=== PATIENT | female | born 1950 | race Caucasian/White ===

== ENCOUNTER 2017-12-16 13:21 | Emergency (ER) | payer MEDICARE, OTHER ==
[2017-03-21 17:30] VITALS: Wt 94.8 kg
[~2017-12-16 13:21] MED LIST: ACET-1966 PO; ACET-2031 PO; ACET-2043 PO; ADV250/50 INH; ALB17R INH; ALBU2.5V36 INH; ALBU8.5H IH; ALEN70TA43 PO; ALLO-119 PO; ASCO500C9 PO; ASPI-1471 PO; ASPI-719 PO; ATOR40TA24 PO; ATOR40TA69 PO; ATR10 PO; BUM2 PO; CALC600T63 PO; CEFU250T11 PO; CEPH-13 PO; CETI-459 PO; CETI10CA8 PO; CHOL100052 PO; CLOB15CR22 TP; DULERAPT INH; ENO40I SQ; EPIN0.3P15 IM; ESOM40CA42 PO; FLUC150T40 PO; FLUT16SP19 NS; FLUT16SP20 NS; FLUT1BLS3 INH; GABA-549 PO; GLUC-198 PO; HYD2 PO; HYDR-4309 PO; IBAN150T6 PO; IPR14R INH; LEVO-315 PO; LEVO750T25 PO; LEVO75TA68 PO; LIS5 PO; LISI-362 PO; MELO-205 PO; MET500 PO; METO25TA23 PO; MOM PO; MULT-820 PO; MULT1CAP41 PO; NAPR500T75 PO; OMEG-11 PO; OMEP40CA79 PO; POTA-53 PO; POTA2.5T7 PO; PRAV10TA46 PO; PROM12.546 PO; SIM10 PO; SPIR100T30 PO; TRIA15OI20 TP; VERAPAMIL PO; VITA100T4 PO; WARF-1 PO; WARF2.5T11 PO; WARF3TAB35 PO; ZOL5 PO; [UNRECOGNIZED DRUG - CODE] PO
[2017-12-16] MEDS ORDERED: ASPIRIN 81 MG CHEW PO ONE (13:40)
--- NOTE | 2017-12-16 13:45 | ER Report ---
History and Physical Time Seen By MD: 13:30 Hx. of Stated Complaint: patient reports SUYAPA chest pain and dspnea since 0500 HPI/ROS CHIEF COMPLAINT: Chest pain, shortness of breath HISTORY OF PRESENT ILLNESS: Patient is a 67-year-old female accompanied by her son, who presents the ED with complaint of chest pain shortness of breath that started this morning. She states that she felt very chilled and short of breath when she awoke this morning. She started to develop some chest pain only in her left chest. She states that the chest pain felt like more sharp pain. She denies any pain with exertion. She denies any radiation of pain into her jaw or arms. She has not had a nausea or vomiting. Patient states that this feels similar to when she had issues with pleural effusions and congestive heart failure 2 years ago. She states that she did need to have drainage completed of her left long 2 years ago because of this. She does have a history of trauma fibrillation and is on Coumadin for anticoagulation. She states that she has had a slight cough recently as well. REVIEW OF SYSTEMS: Constitutional: No fever, no chills. Eyes: No discharge. ENT: No sore throat. Cardiovascular: See history of present illness. No palpitations. Respiratory: See history of present illness. Gastrointestinal: No abdominal pain, no vomiting. Genitourinary: No hematuria. Musculoskeletal: No back pain. Skin: No rashes. Neurological: No headache. Allergies: Coded Allergies: Penicillins (Verified Allergy, Intermediate, RASH, 12/16/17) erythromycin base (Verified Allergy, Intermediate, RASH, 12/16/17) morphine (Verified Allergy, Intermediate, N&v, 12/16/17) nickel (Verified Allergy, Intermediate, rash, hives, 12/16/17) codeine (Verified Allergy, Mild, N&V, 12/16/17) salmeterol (Verified Allergy, Mild, 12/16/17) bacitracin (Verified Allergy, Unknown, 12/16/17) latex (Verified Allergy, Unknown, 12/16/17) neomycin (Verified Allergy, Unknown, 12/16/17) polymyxin B (Verified Allergy, Unknown, 12/16/17) pramoxine (Verified Allergy, Unknown, 12/16/17) Home Meds Active Scripts Cefuroxime Axetil (CEFUROXIME) 250 Mg Tablet, 250 MG PO BID for urinary tract infection, #14 TAB Prov:SARAH CHATTERJEE MD 03/23/17 Reported Medications Acetaminophen (ACETAMINOPHEN) 325 Mg Tablet, 650 MG PO BID, TAB 03/20/17 Warfarin Sodium (WARFARIN SODIUM) 2.5 Mg Tablet, 3.75 MG PO We 03/20/17 Warfarin Sodium (WARFARIN SODIUM) 2.5 Mg Tablet, 2.5 MG PO SuMoTuThFrSa 03/20/17 Albuterol Sulfate 0.083% (ALBUTEROL SULFATE 0.083%) 2.5 Mg/3 Ml Vial.neb, 2.5 MG INH Q6H Y for WHEEZING, INH 03/20/17 Cholecalciferol (Vitamin D3) (VITAMIN D) 1,000 Unit Tablet, 1000 UNIT PO DAILY 03/20/17 Lisinopril (LISINOPRIL) 10 Mg Tablet, 5 MG PO QDAY, TAB 03/20/17 Atorvastatin Calcium (LIPITOR) 40 Mg Tablet, 1 TAB PO QHS, TAB 03/20/17 Fluticasone/Vilanterol (Breo Ellipta 200-25 Mcg INH) 1 Each Blst.w.dev, 1 INHALER INH QDAY 03/20/17 Alendronate Sodium (FOSAMAX) 70 Mg Tablet, 70 MG PO QWK, TAB 03/20/17 Gabapentin (GABAPENTIN) 300 Mg Capsule, 300 MG PO BID, CAPSULE 03/20/17 Calcium Carbonate (CALCIUM) 600 Mg Tablet, 600 MG PO BID 03/20/17 Aspirin (ASPIR 81) 81 Mg Tablet.dr, 81 MG PO QDAY, TAB 07/10/15 Cetirizine Hcl (ZYRTEC) 10 Mg Capsule, 10 MG PO QDAY, CAPSULE 06/25/15 Vitamin E Mixed (VITAMIN E) 100 Unit Tablet, 100 UNIT PO DAILY 06/25/15 Ascorbic Acid (VITAMIN C) 500 Mg Capsule.er, 500 MG PO DAILY 06/25/15 Triamcinolone Acetonide 0.1% Oint 15 Gm Tube (TRIAMCINOLONE ACETONIDE 0.1% 15 GM TUBE) 15 Gm Oint...g., 1 ANGELO TP DAILY Y for RASH, TUBE 06/25/15 Albuterol Sulfate 90 Mcg/Act (PROAIR HFA 90 MCG/ACT) 8.5 Gm Hfa.aer.ad, 2 PUFF IH QID Y for SHORTNESS OF BREATH 06/25/15 Levothyroxine Sodium (LEVOXYL) 100 Mcg Tablet, 100 MCG PO QDAY, TAB 06/25/15 Epinephrine (EPIPEN 2-UZMA) 0.3 Mg/0.3 Ml Pen.injctr, 0.3 MG IM PRN Y for allergic reaction to beesting 06/25/15 Hydrocodone Bit/Acetaminophen (NORCO 5-325 TABLET) 1 Each Tablet, 1 EACH PO Q6H Y for chest pain 06/25/15 Fluticasone Prop 50 Mcg Ns (FLONASE 50 MCG NS) 16 Gm [place].susp, 1 SPRAYS NS BID , BOT 06/01/15 [place]-3 Fatty Acids/Fish Oil (FISH OIL 1,000 MG CAPSULE) 1 Each Capsule, 1 EACH PO DAILY, CAPSULE 06/01/15 Glucosa [place] 2KCL/Chondroitin [place] (GLUCOSAMINE & CHONDROITIN CAP) 1 Each Capsule, 1 TAB PO BID, CAPSULE 06/01/15 Allopurinol (ZYLOPRIM) 300 Mg Tablet, 300 MG PO QDAY, TAB 06/01/15 Omeprazole (Omeprazole) 40 Mg Capsule.dr, 40 MG PO DAILY, 0 Refills 06/04/11 Multivitamins (Multivitamin) 1 Tab Tablet, 1 TAB PO DAILY, 0 Refills 06/04/11 Bumetanide (Bumex) 2 Mg Tab, 2 MG PO QDAY, 0 Refills 06/04/11 Zolpidem Tartrate (Ambien) 5 Mg Tab, 5 MG PO QHSprn, 0 Refills 06/04/11 Reviewed Nurses Notes: Yes Old Medical Records Reviewed: Yes Hx Smoking: Yes Smoking Status: Former Smoker Exposure to Second Hand Smoke?: No Hx Substance Use Disorder: No Hx Alcohol Use: Yes Constitutional Vital Sign - Last 24 Hours 12/16/17 12/16/17 13:32 13:39 Temp 97.7 Pulse 100 Resp 14 B/P (MAP) 135/56 Pulse Ox 95 O2 Delivery Nasal Cannula O2 Flow Rate 1.0 Physical Exam General Appearance: The patient is alert, has no immediate need for airway protection and no signs of toxicity. She appears to be in no acute distress. Eyes: Pupils equal and round no pallor or injection. ENT, Mouth: Mucous membranes are moist. Respiratory: There are no retractions, lungs are clear to auscultation. Cardiovascular: Slightly tachycardic, regular rhythm Gastrointestinal: Abdomen is soft and non tender, no masses, bowel sounds normal. Skin: Warm and dry, no rashes. Musculoskeletal: Neck is supple non tender. Extremities are nontender, nonswollen and have full range of motion. DIFFERENTIAL DIAGNOSIS: After history and physical exam differential diagnosis was considered for shortness of breath including but not limited to pulmonary infectious process, COPD, asthma, pulmonary embolus and congestive heart failure. Medical Decision Making Data Points Result Diagram: 12/16/17 1350 12/16/17 1350 Laboratory Hematology Test 12/16/17 13:50 12/16/17 14:15 12/16/17 14:44 Red Blood Count 4.21 M/uL (4.17-5.56) Mean Corpuscular Volume 95.4 fL (80.0-96.0) Mean Corpuscular Hemoglobin 32.6 pg (26.0-33.0) Mean Corpuscular Hemoglobin Concent 34.1 g/dL (32.0-36.0) Red Cell Distribution Width 16.1 % (11.5-14.5) Mean Platelet Volume 8.7 fL (7.2-11.1) Neutrophils (%) (Auto) 87.3 % (39.4-72.5) Lymphocytes (%) (Auto) 8.6 % (17.6-49.6) Monocytes (%) (Auto) 3.3 % (4.1-12.4) Eosinophils (%) (Auto) 0.0 % (0.4-6.7) Basophils (%) (Auto) 0.8 % (0.3-1.4) Nucleated RBC Relative Count (auto) 0.0 /100WBC Neutrophils # (Auto) 15.1 K/uL (2.0-7.4) Lymphocytes # (Auto) 1.5 K/uL (1.3-3.6) Monocytes # (Auto) 0.6 K/uL (0.3-1.0) Eosinophils # (Auto) 0.0 K/uL (0.0-0.5) Basophils # (Auto) 0.1 K/uL (0.0-0.1) Nucleated RBC Absolute Count (auto) 0.01 K/uL Sodium Level 135 mmol/L (137-145) Potassium Level 4.1 mmol/L (3.5-5.0) Chloride Level 101 mmol/L (98-107) Carbon Dioxide Level 21 mmol/L (22-31) Blood Urea Nitrogen 15 mg/dl (7-18) Creatinine 1.20 mg/dl (0.52-1.04) Glomerular Filtration Rate Calc 44.7 Random Glucose 123 mg/dl (75-110) Calcium Level 8.5 mg/dl (8.4-10.2) Total Bilirubin 1.2 mg/dl (0.2-1.3) Aspartate Amino Transf (AST/SGOT) 67 U/L (0-35) Alanine Aminotransferase (ALT/SGPT) 27 U/L (0-56) Alkaline Phosphatase 99 U/L (0-126) Troponin I < 0.012 ng/ml B-Type Natriuretic Peptide 39 pg/ml (0-100) Total Protein 7.3 gm/dl (6.3-8.2) Albumin 4.0 g/dl (3.5-5.0) Influenza Virus Type A (PCR) Negative (NEGATIVE) Influenza Virus Type B (PCR) Negative (NEGATIVE) Prothrombin Time 27.1 seconds (12.0-14.4) Prothromb Time International Ratio 2.42 Activated Partial Thromboplast Time 42 seconds (23-35) D-Dimer Quantitative (PE/DVT) < 0.27 ug/ml (0-0.50) Chemistry Test 12/16/17 13:50 12/16/17 14:15 12/16/17 14:44 White Blood Count 17.3 k/uL (4.5-11.0) Red Blood Count 4.21 M/uL (4.17-5.56) Hemoglobin 13.7 g/dL (12.0-16.0) Hematocrit 40.2 % (34.0-47.0) Mean Corpuscular Volume 95.4 fL (80.0-96.0) Mean Corpuscular Hemoglobin 32.6 pg (26.0-33.0) Mean Corpuscular Hemoglobin Concent 34.1 g/dL (32.0-36.0) Red Cell Distribution Width 16.1 % (11.5-14.5) Platelet Count 259 K/uL (150-450) Mean Platelet Volume 8.7 fL (7.2-11.1) Neutrophils (%) (Auto) 87.3 % (39.4-72.5) Lymphocytes (%) (Auto) 8.6 % (17.6-49.6) Monocytes (%) (Auto) 3.3 % (4.1-12.4) Eosinophils (%) (Auto) 0.0 % (0.4-6.7) Basophils (%) (Auto) 0.8 % (0.3-1.4) Nucleated RBC Relative Count (auto) 0.0 /100WBC Neutrophils # (Auto) 15.1 K/uL (2.0-7.4) Lymphocytes # (Auto) 1.5 K/uL (1.3-3.6) Monocytes # (Auto) 0.6 K/uL (0.3-1.0) Eosinophils # (Auto) 0.0 K/uL (0.0-0.5) Basophils # (Auto) 0.1 K/uL (0.0-0.1) Nucleated RBC Absolute Count (auto) 0.01 K/uL Glomerular Filtration Rate Calc 44.7 Calcium Level 8.5 mg/dl (8.4-10.2) Total Bilirubin 1.2 mg/dl (0.2-1.3) Aspartate Amino Transf (AST/SGOT) 67 U/L (0-35) Alanine Aminotransferase (ALT/SGPT) 27 U/L (0-56) Alkaline Phosphatase 99 U/L (0-126) Troponin I < 0.012 ng/ml B-Type Natriuretic Peptide 39 pg/ml (0-100) Total Protein 7.3 gm/dl (6.3-8.2) Albumin 4.0 g/dl (3.5-5.0) Influenza Virus Type A (PCR) Negative (NEGATIVE) Influenza Virus Type B (PCR) Negative (NEGATIVE) Prothrombin Time 27.1 seconds (12.0-14.4) Prothromb Time International Ratio 2.42 Activated Partial Thromboplast Time 42 seconds (23-35) D-Dimer Quantitative (PE/DVT) < 0.27 ug/ml (0-0.50) Coagulation Test 12/16/17 14:44 Prothrombin Time 27.1 seconds Prothromb Time International Ratio 2.42 Activated Partial Thromboplast Time 42 seconds D-Dimer Quantitative (PE/DVT) < 0.27 ug/ml EKG/Imaging EKG Interpretation 12 lead EKG: Rhythm: Normal sinus rhythm, rate 89 bpm [place]: normal QRS: normal ST segments: No acute ST changes identified. There is slight T-wave inversion in V1. Imaging CXR: IMPRESSION: 1. Patchy airspace consolidation in the left lower lobe worrisome for pneumonia however continued surveillance recommended to assure complete clearing and to exclude a mass lesion Report Dictated By: Talia Leos MD at 12/16/2017 2:36 PM Report E-Signed By: Talia Leos MD at 12/16/2017 2:39 PM ED Course/Re-evaluation ED Course Will obtain EKG, chest x-ray, labs. 12/16/2017 3:27:05 pm - discussed all labs, EKG, chest x-ray with patient. Patient does have some leukocytosis with left shift. She also has a small patchy infiltrate in left lower lobe that looks concerning for pneumonia. Discussed this with patient. She does have oxygen that she wears usually at home and does not up. Appears to have no significant hypoxemia here. Discussed that we will give her a dose of antibiotics here IV and then by mouth antibiotics at home. Mother follow-up with primary care provider. She does have a DuoNeb with albuterol that she uses as well. Advised to continue use of this. CURB 65 Score: 1 Patient is allergic to penicillin and erythromycin. Given these allergies we will give her Levaquin for her pneumonia. Decision to Disposition Date: Dec 16, 2017 Decision to Disposition Time: 15:30 Depart Departure Latest Vital Signs Vital Signs Date Time Temp Pulse Resp B/P (MAP) Pulse Ox O2 Delivery O2 Flow Rate FiO2 12/16/17 13:39 1.0 12/16/17 13:32 97.7 100 14 135/56 95 Nasal Cannula Impression: Primary Impression: Pneumonia Condition: Improved Disposition: HOME OR SELF-CARE Referrals: JOSE SMITH (PCP) New Scripts Levofloxacin 750 Mg Tab (LEVAQUIN 750 MG TAB) 750 Mg Tablet 750 MG PO QDAY for 4 Days, #4 TAB Prov: LEILANI BERMEO PA-C 12/16/17 Patient Instructions: Bacterial Pneumonia (ED) Additional Instructions: Stay well-hydrated. Follow-up with her primary care provider as scheduled in 3 days. Take antibiotics as prescribed. Use your albuterol nebulizer as needed. If having any worsening or concerning symptoms may return to the emergency department. Problem Qualifiers Primary Impression: Pneumonia Pneumonia type: due to unspecified organism Laterality: left Lung location : lower lobe of lung Qualified Codes: J18.1 - Lobar pneumonia, unspecified organism LEILANI BERMEO PA-C Dec 16, 2017 13:45
--- NOTE | 2017-12-16 13:57 | EKG ---
FACILITY: [facility] PATIENT NAME: LESA LOCK : [id number] MR: [id number] V: [id number] EXAM DATE: ORDERING PHYSICIAN: LEILANI BERMEO TECHNOLOGIST: NETTE Diego Reason : CHEST PAIN Blood Pressure : / mmHG Vent. Rate : 089 BPM Atrial Rate : 089 BPM P-R Int : 140 ms QRS Dur : 072 ms QT Int : 386 ms P-R-T Axes : 069 019 077 degrees QTc Int : 469 ms Sinus rhythm Possible right atrial enlargement Decreased R wave progression anteriorly Abnormal ECG When compared with ECG of 20-MAR-2017 15:04, No significant change was found Confirmed by JERICHO CHATTERJEE ([id number]) on 12/17/2017 5:43:30 AM Referred By: SUSHILA Confirmed By:JERICHO CHATTERJEE
[2017-12-16 14:09] LABS: PLATELET COUNT, AUTOMATED 259 K/uL (150-450)
--- NOTE | 2017-12-16 14:44 | RADIOLOGY IMAGING REPORT ---
FACILITY: [facility] PATIENT NAME: Karen Black : 1950 MR: [id number] V: [id number] EXAM DATE: ORDERING PHYSICIAN: LEILANI BERMEO TECHNOLOGIST: Location: [facility] Patient: Karen Black : 1950 Visit/Account:[id number] Date of Sevice: 12/16/2017 Exam type: CHEST PA AND LAT History: Shortness of breath, chest pain since this morning, cough, previous smoker Comparison: March 20, 2017. Findings: There is cardiomegaly unchanged. There is no evidence of overt pulmonary edema or pleural effusions. There is patchy airspace consolidation in the left lower lobe posteriorly. There are moderate spon dylotic changes in the thoracic spine. Postsurgical changes left shoulder IMPRESSION: 1. Patchy airspace consolidation in the left lower lobe worrisome for pneumonia however continued hendricks rveillance recommended to assure complete clearing and to exclude a mass lesion Report Dictated By: Talia Leos MD at 12/16/2017 2:36 PM Report E-Signed By: Talia Leos MD at 12/16/2017 2:39 PM WSN:[email or web address]
[2017-12-16 15:00] VITALS: BP 133/56
[2017-12-16 15:17] LABS: INR 2.42
[2017-12-16] MEDS ORDERED: LEVOFLOXACIN/D5W 750 MG/150 ML 150 ML IVPB ONE (15:20)
[2017-12-16] MEDS ORDERED: ALBUTEROL 2.5 MG/0.5ML ER ONLY NEB ONE (15:20)
[2017-12-16] MEDS ORDERED: LEVO750T44 PO (15:31)
== END 2017-12-16 17:00 | disposition home or self-care (01) ==
LOC: ER 13:22
DX: J18.1 Lobar pneumonia, unspecified organism (principal)
CPT/HCPCS: 36415; 71046; 83880; 84484; 85025; 85379; 85610; 85730; 87502; 93005; 94640; 96365; 99283; A9270; J1956; J7611; 82040; 82247; 82310; 82374; 82435; 82565; 82947; 84075; 84132; 84155; 84295; 84450; 84460; 84520

== ENCOUNTER → 2018-01-06 | Outpatient (CLI) | payer MEDICARE, OTHER ==
[2017-03-21 17:30] VITALS: BMI 38.6
[~2018-01-06] MED LIST changes: +LEVO750T44 PO
--- NOTE | 2018-01-06 10:05 | RADIOLOGY IMAGING REPORT ---
FACILITY: [facility] [place] PATIENT NAME: Karen Black : 1950 MR: [id number] V: [id number] EXAM DATE: ORDERING PHYSICIAN: JOSE SMITH TECHNOLOGIST: Location: [facility] Patient: Karen Black : 1950 Visit/Account:[id number] Date of Sevice: 01/06/2018 Chest with lateral, 2 views. HISTORY: Bacterial pneumonia, chest pain. COMPARISON: 12/16/2017. Mild cardiomegaly is unchanged. The mediastinum is unremarkable. Pulmonary vessels are normal. Infilt rate in the left lung base has resolved. The lungs are voluminous. No pleural fluid. The bones are os teopenic. Degenerative changes are present in the spine. Metal anchors are present in the left should er. IMPRESSION: Mild cardiomegaly without donnie congestive heart failure. Resolution of left basilar lung infiltrate. Otherwise no evidence of acute cardiopulmonary disease. Report Dictated By: Bhupendra Chong MD at 01/06/2018 9:57 AM Report E-Signed By: Bhupendra Chong MD at 01/06/2018 10:01 AM WSN:[id number]
--- NOTE | 2018-01-06 11:41 | RADIOLOGY IMAGING REPORT ---
FACILITY: [facility] PATIENT NAME: Karen Black : 1950 MR: [id number] V: [id number] EXAM DATE: ORDERING PHYSICIAN: JOSE SMITH TECHNOLOGIST: Location: [facility] [place] Patient: Karen Black : 1950 Visit/Account:[id number] Date of Sevice: 01/06/2018 DEXA Scan Clinical history: Senile osteoporosis. Comparison: DEXA scan from 06/11/2015. LUMBAR SPINE: The bone mineral density (BMD) measured from L1-L4 correlates with a Z-score 0.4 and a T-score of zer o which is Normal as defined by the World Health Organization. The corresponding risk of fracture in the lumbar spine is Not increased compared with a young adult reference population. This value has increased by 6.8 % since the prior study. More than 5% change is considered significant. FOREARM: The bone mineral density (BMD) measured in the ULTRADISTAL Left forearm, where trabecular bone predom inates, correlates with a Z-score of -0.2 and a T-score of -1.9 which is osteopenia as defined by the World Health Organization. The corresponding risk of fracture in the distal forearm is 3-4 times in creased compared with a young adult reference population. This value has increased by 7.6 % since prior study. More than 5% change is considered significant. The bone mineral density (BMD) in the MIDSHAFT of the forearm, where cortical bone predominates, michael elates with a Z-score of -0.4 and a T-score of -2 which is osteopenia as defined by the World Health Organization. The corresponding risk of fracture in the midshaft of the forearm is 4 times increased compared with a young adult reference population. This value has increase by 7.6 % since the prior s tudy. More than 5% change is considered significant. IMPRESSION: 1. Lumbar spine: Normal. There has been 6.8% increase in the bone mineral density since the previou s exam. 2. Left Forearm: Osteopenia. There has been 7.6% increase in the bone mineral density since the pr evious exam The next DEXA scan of this patient should include the following sites: L1-L4 and the left forearm. FRAX? WHO Fracture Risk Assessment Tool link: <http://www.shef.ac.uk/FRAX/tool.jsp?locationValue=9> PLEASE NOTE: 1) The World Health Organization defines low BMD as follows: T-score Normal > -1 Osteopenia < -1 and > -2.5 Osteoporosis < -2.5 without fractures Established osteoporosis < -2.5 with fractures 2) In general, you may wish to consider: Diagnosis Treatment Follow-up DEXA Normal BMD Prevention 2-3 years Osteopenia Prevention/therapy 1-2 years Osteoporosis Therapy Yearly 3) Fracture risk estimated from the T-score is more accurate for vertebral fractures (often spontane ous) than for hip fractures. Report Dictated By: Talia Leos MD at 01/06/2018 11:10 AM Report E-Signed By: Talia Leos MD at 01/06/2018 11:38 AM WSN:[email or web address]
== END ==
LOC: RAD 03:59
PROVIDERS: ATTEND Nurse Practitioner Family
DX: Z13.820 Encounter for screening for osteoporosis (principal); M85.832 Other specified disorders of bone density and structure, left forearm; I51.7 Cardiomegaly
CPT/HCPCS: 71046; 77080

== ENCOUNTER → 2018-07-11 | Outpatient (CLI) | payer MEDICARE, OTHER ==
[2017-03-21 17:30] VITALS: BMI 38.6
--- NOTE | 2018-07-11 16:17 | RADIOLOGY IMAGING REPORT ---
FACILITY: [facility] [place] PATIENT NAME: Karen Black : 1950 MR: [id number] V: [id number] EXAM DATE: [id number] ORDERING PHYSICIAN: JOSE SMITH TECHNOLOGIST: Location: [facility] [place] Patient: Karen Black : 1950 Visit/Account:[id number] Date of Sevice: 07/11/2018 Exam type: CHEST PA AND LAT History: Shortness of breath, chest pain, hypoxemia Comparison: January 06, 2018. Findings: There is mild to moderate cardiomegaly that appears unchanged. There is no evidence of acute appeari ng infiltrates pleural effusions or pulmonary edema. There are moderate spondylotic changes of the t horacic spine some are to the prior study. There are postsurgical changes left shoulder. Small scle rotic density projecting over the proximal left humerus. This likely related to the loose body ident ified on a prior CT of the chest from 06/01/2015 IMPRESSION: 1. Mild to moderate cardiac megaly unchanged No evidence of acute pulmonary consolidation Report Dictated By: Talia Leos MD at 07/11/2018 4:04 PM Report E-Signed By: Talia Leos MD at 07/11/2018 4:12 PM GENNYN:[email or web address]
== END ==
LOC: RAD 15:39
PROVIDERS: ATTEND Nurse Practitioner Family
DX: I51.7 Cardiomegaly (principal); R06.00 Dyspnea, unspecified; R07.9 Chest pain, unspecified; R09.02 Hypoxemia
CPT/HCPCS: 71046

== ENCOUNTER 2018-07-26 15:44 | Emergency (ER) | payer MEDICARE, OTHER ==
[2017-03-21 17:30] VITALS: Wt 94.8 kg
[~2018-07-26 15:44] MED LIST changes: -HYDR-4309 PO; +HYDR-653 PO
--- NOTE | 2018-07-26 17:00 | ER Report ---
History and Physical Time Seen By MD: 15:45 Hx. of Stated Complaint: PT FELL OFF PORCH ON R SIDE, PAIN AND DEFORMITY IN R ARM, NECK TENDERNESS HPI/ROS CHIEF COMPLAINT: Fall shoulder and arm pain HISTORY OF PRESENT ILLNESS: 67-year-old female was walking out of the back door of a neighbors house lost her balance fell onto her right side has pain to her right upper arm right shoulder some mild tenderness of the elbow and some upper neck discomfort no loss of consciousness did not hit her head no hip pain was able to ambulate afterwards no additional complaints noted REVIEW OF SYSTEMS: Respiratory: No cough, no dyspnea. Cardiovascular: No chest pain, no palpitations. Gastrointestinal: No vomiting, no abdominal pain. Musculoskeletal: Right arm shoulder pain Remainder of the 14 system rev: Yes Allergies: Coded Allergies: Penicillins (Verified Allergy, Intermediate, RASH, 12/16/17) erythromycin base (Verified Allergy, Intermediate, RASH, 12/16/17) morphine (Verified Allergy, Intermediate, N&v, 12/16/17) nickel (Verified Allergy, Intermediate, rash, hives, 12/16/17) codeine (Verified Allergy, Mild, N&V, 12/16/17) salmeterol (Verified Allergy, Mild, 12/16/17) bacitracin (Verified Allergy, Unknown, 12/16/17) latex (Verified Allergy, Unknown, 12/16/17) neomycin (Verified Allergy, Unknown, 12/16/17) polymyxin B (Verified Allergy, Unknown, 12/16/17) pramoxine (Verified Allergy, Unknown, 12/16/17) Home Meds Reported Medications Hydromorphone Hcl (DILAUDID) 2 Mg Tablet, 2 MG PO 07/26/18 Acetaminophen (ACETAMINOPHEN) 325 Mg Tablet, 650 MG PO BID, TAB 03/20/17 Warfarin Sodium (WARFARIN SODIUM) 2.5 Mg Tablet, 3.75 MG PO We 03/20/17 Warfarin Sodium (WARFARIN SODIUM) 2.5 Mg Tablet, 2.5 MG PO [id number] 03/20/17 Albuterol Sulfate 0.083% (ALBUTEROL SULFATE 0.083%) 2.5 Mg/3 Ml Vial.neb, 2.5 MG INH Q6H PRN for WHEEZING, INH 03/20/17 Cholecalciferol (Vitamin D3) (VITAMIN D) 1,000 Unit Tablet, 1000 UNIT PO DAILY 03/20/17 Lisinopril (LISINOPRIL) 10 Mg Tablet, 5 MG PO QDAY, TAB 03/20/17 Atorvastatin Calcium (LIPITOR) 40 Mg Tablet, 1 TAB PO QHS, TAB 03/20/17 Fluticasone/Vilanterol (Breo Ellipta 200-25 Mcg INH) 1 Each Blst.w.dev, 1 INHALER INH QDAY 03/20/17 Alendronate Sodium (FOSAMAX) 70 Mg Tablet, 70 MG PO QWK, TAB 03/20/17 Gabapentin (GABAPENTIN) 300 Mg Capsule, 300 MG PO BID, CAPSULE 03/20/17 Calcium Carbonate (CALCIUM) 600 Mg Tablet, 600 MG PO BID 03/20/17 Aspirin (ASPIR 81) 81 Mg Tablet.dr, 81 MG PO QDAY, TAB 07/10/15 Cetirizine Hcl (ZYRTEC) 10 Mg Capsule, 10 MG PO QDAY, CAPSULE 06/25/15 Vitamin E Mixed (VITAMIN E) 100 Unit Tablet, 100 UNIT PO DAILY 06/25/15 Ascorbic Acid (VITAMIN C) 500 Mg Capsule.er, 500 MG PO DAILY 06/25/15 Triamcinolone Acetonide 0.1% Oint 15 Gm Tube (TRIAMCINOLONE ACETONIDE 0.1% 15 GM TUBE) 15 Gm Oint...g., 1 ANGELO TP DAILY PRN for RASH, TUBE 06/25/15 Albuterol Sulfate 90 Mcg/Act (PROAIR HFA 90 MCG/ACT) 8.5 Gm Hfa.aer.ad, 2 PUFF IH QID PRN for SHORTNESS OF BREATH 06/25/15 Levothyroxine Sodium (LEVOXYL) 100 Mcg Tablet, 100 MCG PO QDAY, TAB 06/25/15 Epinephrine (EPIPEN 2-UZMA) 0.3 Mg/0.3 Ml Pen.injctr, 0.3 MG IM PRN PRN for allergic reaction to beesting 06/25/15 Hydrocodone Bit/Acetaminophen (NORCO 5-325 TABLET) 1 Each Tablet, 1 EACH PO Q6H PRN for chest pain 06/25/15 Fluticasone Prop 50 Mcg Ns (FLONASE 50 MCG NS) 16 Gm Cashiers.susp, 1 SPRAYS NS BID, BOT 06/01/15 [place]-3 Fatty Acids/Fish Oil (FISH OIL 1,000 MG CAPSULE) 1 Each Capsule, 1 EACH PO DAILY, CAPSULE 06/01/15 Glucosa [place] 2KCL/Chondroitin [place] (GLUCOSAMINE & CHONDROITIN CAP) 1 Each Capsule, 1 TAB PO BID, CAPSULE 06/01/15 Allopurinol (ZYLOPRIM) 300 Mg Tablet, 300 MG PO QDAY, TAB 06/01/15 Omeprazole (Omeprazole) 40 Mg Capsule.dr, 40 MG PO DAILY, 0 Refills 06/04/11 Multivitamins (Multivitamin) 1 Tab Tablet, 1 TAB PO DAILY, 0 Refills 06/04/11 Bumetanide (Bumex) 2 Mg Tab, 2 MG PO QDAY, 0 Refills 06/04/11 Zolpidem Tartrate (Ambien) 5 Mg Tab, 5 MG PO QHSprn, 0 Refills 06/04/11 Discontinued Scripts Levofloxacin 750 Mg Tab (LEVAQUIN 750 MG TAB) 750 Mg Tablet, 750 MG PO QDAY for 4 Days, #4 TAB Prov:LEILANI BERMEO PA-C 12/16/17 Cefuroxime Axetil (CEFUROXIME) 250 Mg Tablet, 250 MG PO BID for urinary tract infection, #14 TAB Prov:SARAH CHATTERJEE MD 03/23/17 Reviewed Nurses Notes: Yes Old Medical Records Reviewed: Yes Hx Smoking: Yes Smoking Status: Former Smoker Exposure to Second Hand Smoke?: No Hx Substance Use Disorder: No Hx Alcohol Use: Yes Constitutional Vital Sign - Last 24 Hours 07/26/18 16:06 Temp 97.4 Pulse 69 Resp 18 B/P (MAP) 147/79 Pulse Ox 94 O2 Delivery Nasal Cannula Physical Exam General Appearance: The patient is alert, has no immediate need for airway protection and no current signs of toxicity. [ ] Eyes: Pupils equal and round no injection. Respiratory: Chest is non tender, lungs are clear to auscultation. Cardiac: regular rate and rhythm [ ] Gastrointestinal: Abdomen is soft and non tender, no masses, bowel sounds normal. Musculoskeletal: Examination of the right upper shoulder me shows pain to palpation the proximal humerus pain with rotation of the shoulder some mild tenderness with rotation at the elbow nonspecific Neck is supple and non tender other than some mild tenderness at C1-C2 Extremities have full range of motion and are non tender. Other than stated above Skin: No rashes or lesions. Knee abrasion [ ] DIFFERENTIAL DIAGNOSIS: After history and physical exam differential diagnosis was considered for contusion versus fracture Medical Decision Making ED Course/Re-evaluation ED Course ED: [facility] 59 Cho female mechanical fall x-rays of the cervical spine upper hum eral shoulder and lumbar review was negative patient be discharge diagnosis contusion Decision to Disposition Date: Jul 26, 2018 Decision to Disposition Time: 17:58 Depart Departure Latest Vital Signs Vital Signs Date Time Temp Pulse Resp B/P (MAP) Pulse Ox O2 Delivery O2 Flow Rate FiO2 07/26/18 16:06 97.4 69 18 147/79 94 Nasal Cannula Impression: Primary Impression: Contusion Condition: Improved Disposition: HOME OR SELF-CARE Referrals: JOSE SMITH (PCP) 5 Days Patient Instructions: Contusion in Adults (DC) NICOLE VILLAR MD Jul 26, 2018 17:00
[2018-07-26] MEDS ORDERED: HYDR2TAB74 PO (17:11)
[2018-07-26 17:30] VITALS: BP 164/65
--- NOTE | 2018-07-26 17:32 | RADIOLOGY IMAGING REPORT ---
FACILITY: [facility] [place] PATIENT NAME: Karen Blakc : 1950 MR: [id number] V: [id number] EXAM DATE: ORDERING PHYSICIAN: NICOLE IVLLAR TECHNOLOGIST: Location: [facility] - [place] Patient: Karen Black : 1950 Visit/Account:[id number] Date of Sevice: 07/26/2018 EXAMINATION: Cervical spine radiographs 3 views HISTORY: Neck pain. Fall. COMPARISON: None. FINDINGS: AP, open-mouth odontoid, and lateral views of the cervical spine are obtained. Bones: The lower cervical spine is not well visualized on the lateral views due to superimposition o f bones and soft tissues of the shoulders. Disc spaces: Disc degenerative changes at C5-6 and C6-7 with disc space narrowing and endplate osteo phytes. Posterior elements: Multilevel facet hypertrophy in the cervical spine. Alignment: Slight anterolisthesis of C4 on C5. Hardware: None. Soft tissues: Negative. Visualized lung apices: Negative. IMPRESSION: The lower cervical spine is suboptimally visualized on the lateral views due to superimposition of estelita ravi and soft tissues of the shoulders. No evidence of acute fracture of the cervical spine. Multilevel disc and facet degenerative changes in the cervical spine. Report Dictated By: Joey Salinas MD at 07/26/2018 5:24 PM Report E-Signed By: Joey Salinas MD at 07/26/2018 5:28 PM WSN:[id number]
--- NOTE | 2018-07-26 17:34 | RADIOLOGY IMAGING REPORT ---
FACILITY: [facility] - [place] PATIENT NAME: Karen Black : 1950 MR: [id number] V: [id number] EXAM DATE: ORDERING PHYSICIAN: NICOLE VILLAR TECHNOLOGIST: Location: [facility] [place] Patient: Karen Black : 1950 Visit/Account:[id number] Date of Sevice: 07/26/2018 EXAMINATION: Right shoulder radiographs 2 views HISTORY: Fall. Pain. COMPARISON: None. FINDINGS: 2 views of the right shoulder are obtained. Bones: No evidence of acute fracture. Joint spaces: No dislocation. Mild right acromioclavicular joint degenerative changes. Hardware: None. Soft tissues/visualized lungs: Negative. IMPRESSION: No evidence of acute fracture or dislocation of the right shoulder. Report Dictated By: Joey Salinas MD at 07/26/2018 5:28 PM Report E-Signed By: Joey Salinas MD at 07/26/2018 5:30 PM WSN:[id number]
--- NOTE | 2018-07-26 17:36 | RADIOLOGY IMAGING REPORT ---
FACILITY: [facility] - [place] PATIENT NAME: Karen Black : 1950 MR: [id number] V: [id number] EXAM DATE: ORDERING PHYSICIAN: NICOLE VILLAR TECHNOLOGIST: Location: [facility] Patient: Karen Black : 1950 Visit/Account:[id number] Date of Sevice: 07/26/2018 EXAMINATION: Right elbow radiographs 2 views HISTORY: Fall. Pain. COMPARISON: None. FINDINGS: 2 views of the right elbow are obtained. Bones: Negative. Joint spaces: Negative. Hardware: None. Alignment: Normal. Soft tissues: Negative. Effusion: None. IMPRESSION: No acute fracture or effusion of the right elbow. Report Dictated By: Joey Salinas MD at 07/26/2018 5:32 PM Report E-Signed By: Joey Salinas MD at 07/26/2018 5:33 PM WSN:[id number]
--- NOTE | 2018-07-26 17:36 | RADIOLOGY IMAGING REPORT ---
[place] [facility] [place] Karen Black : 1950 MR: [id number] V: [id number] EXAM DATE: ORDERING PHYSICIAN: NICOLE VILLAR TECHNOLOGIST: Location: [facility] Patient: Karen Black : 1950 Visit/Account:[id number] Date of Sevice: 07/26/2018 EXAMINATION: Right humerus radiographs 2 views HISTORY: Fall. Pain. COMPARISON: None. FINDINGS: AP and lateral views of the right humerus are obtained. Bones: No acute fracture of the right humerus. Joint spaces: Mild degenerative changes of the right acromioclavicular joint. Hardware: None. Alignment: The right humeral head is high riding. Soft tissues: Negative. IMPRESSION: No acute fracture of the right humerus. Report Dictated By: Joey Salinas MD at 07/26/2018 5:31 PM Report E-Signed By: Joey Salinas MD at 07/26/2018 5:32 PM WSN:[id number]
== END 2018-07-26 18:10 | disposition home or self-care (01) ==
LOC: ER 16:09
DX: S40.011A Contusion of right shoulder, initial encounter (principal); S50.01XA Contusion of right elbow, initial encounter; W17.89XA Other fall from one level to another, initial encounter
CPT/HCPCS: 72040; 73030; 73060; 73070; 99284; A4565; L0172

== ENCOUNTER → 2018-08-02 | Outpatient (CLI) | payer MEDICARE, OTHER ==
[2017-03-21 17:30] VITALS: BMI 38.6
[~2018-08-02] MED LIST changes: +HYDR2TAB74 PO
--- NOTE | 2018-08-02 14:20 | RADIOLOGY IMAGING REPORT ---
FACILITY: [facility] PATIENT NAME: Karen Black : 1950 MR: [id number] V: [id number] EXAM DATE: ORDERING PHYSICIAN: NOEL QUINN TECHNOLOGIST: [place] [facility] [place] : 1950 Visit/Account:[id number] Date of Sevice: 08/02/2018 MRI right shoulder Indication: Pain after fall one week ago. Comparison: Right shoulder radiograph 07/26/2018 Technique: Multiplanar multisequence MR images were obtained through the right shoulder. Findings: Coracoacromial outlet: The acromioclavicular joint is congruent. Moderate degenerative changes present with small inferiorl y directed osteophytes noted. No os acromiale is present. The acromion is type II, as noted in the sagittal plane. Moderate subchondral subdeltoid bursal fluid with synovial hypertrophy is present. Subacromial-subde ltoid bursal fluid is seen. Rotator cuff: A massive rotator cuff tear is present, manifested by full thickness near full width tearing of the s upraspinatus and infraspinatus tendons at and near the footprint, with medial retraction of the torn fibers near the level of the joint line. Teres minor tendon is intact. Focal high-grade partial-thickness articular and/or intrasubstance tearing is present in the upper mo st fibers of the subscapularis tendon at and near the footprint, on a background of severe tendinosis . Generalized decreased rotator cuff and deltoid muscle bulk is present, with some apparent infraspinat us muscle atrophy noted. No muscle edema is present. Glenoid labrum and capsular structures: The glenohumeral joint is congruent. Mild posterior sag of the humeral head relative to the glenoid is present. Low-grade articular cartilage loss is present. No significant labral tear or perilabral ganglion cys t is seen. Small glenohumeral joint effusion is likely reactive. Biceps tendon complex: The long head biceps tendon is attached to its anchor. There is slight medial subluxation into the s ubscapularis tendon tear near the level of the tj. Moderate to high-grade interstitial tearing of the intra-articular and extra-articular portion of the biceps tendon is present. Background severe biceps tendinosis and tenosynovitis is present. The rotator interval is intact. Osseous structures/bone marrow: The marrow signal intensity is normal. Nonspecific cystic change is subjacent to the supraspinatus a nd infraspinatus tendon footprints in the greater tuberosity. IMPRESSION: 1. Massive rotator cuff tear, characterized by full-thickness near full width tearing of the suprasp inatus and infraspinatus tendons, with medial retraction of torn fibers near the level of the joint l ine. 2. Focal high grade intrasubstance and/or partial thickness articular sided tearing in the upper mos t fibers of the subscapularis tendon, at near its footprint, may contribute to slight biceps tendon p ulley insufficiency. Background severe subscapularis tendinosis. 3. High-grade interstitial tearing of the intra-articular and extra articular portion of the biceps tendon on a background of severe tendinosis. Slight medial subluxation at the tj is noted. 4. Moderate acromioclavicular and at least mild glenohumeral osteoarthrosis. 5. Small glenohumeral effusion and moderate subacromial-subdeltoid bursitis with synovitis. 6. Mild generalized decreased rotator cuff and deltoid muscle bulk, with slightly more significant a trophy noted within the infraspinatus muscle, possibly sequela of remote injury. Report Dictated By: Reshma Sheriff MD at 08/02/2018 2:06 PM Report E-Signed By: Reshma Sheriff MD at 08/02/2018 2:15 PM WSN:[email or web address]
== END ==
LOC: MRI 01:09
PROVIDERS: ATTEND Nurse Practitioner Family
DX: M75.121 Complete rotator cuff tear or rupture of right shoulder, not specified as traumatic (principal)

== ENCOUNTER 2018-08-27 15:15 | Emergency (ER) | payer MEDICARE, OTHER ==
[2017-03-21 17:30] VITALS: Wt 99.8 kg
--- NOTE | 2018-08-27 15:34 | ER Report ---
History and Physical Time Seen By MD: 15:19 Hx. of Stated Complaint: ABD PAIN WITH FEVERS HPI/ROS CHIEF COMPLAINT: FEVERS HISTORY OF PRESENT ILLNESS: Pt states that on Tuesday she started with a dull LUQ abd pain and a fever. + chills on and off. Pt using tylenol for fever. Pt also c/o headache, non productive cough, some dysuria, no change in bm. Pt said the pain is constant. No sick contacts. Did not have her flu shot REVIEW OF SYSTEMS: Constitutional: + fever, + chills. Eyes: No discharge. ENT: No sore throat. Cardiovascular: No chest pain, no palpitations. Respiratory: + cough, + shortness of breath. Gastrointestinal: + abdominal pain, no vomiting. Genitourinary: No hematuria. Musculoskeletal: No back pain, + r shoulder pain constant Skin: No rashes. Neurological: + headache. Allergies: Coded Allergies: Penicillins (Verified Allergy, Intermediate, RASH, 08/27/18) erythromycin base (Verified Allergy, Intermediate, RASH, 08/27/18) morphine (Verified Allergy, Intermediate, N&v, 08/27/18) nickel (Verified Allergy, Intermediate, rash, hives, 08/27/18) codeine (Verified Allergy, Mild, N&V, 08/27/18) salmeterol (Verified Allergy, Mild, 08/27/18) bacitracin (Verified Allergy, Unknown, 08/27/18) latex (Verified Allergy, Unknown, 08/27/18) neomycin (Verified Allergy, Unknown, 08/27/18) polymyxin B (Verified Allergy, Unknown, 08/27/18) pramoxine (Verified Allergy, Unknown, 08/27/18) Home Meds Reported Medications Hydromorphone Hcl (DILAUDID) 2 Mg Tablet, 2 MG PO 07/26/18 Acetaminophen (ACETAMINOPHEN) 325 Mg Tablet, 650 MG PO BID, TAB 03/20/17 Warfarin Sodium (WARFARIN SODIUM) 2.5 Mg Tablet, 3.75 MG PO We 03/20/17 Warfarin Sodium (WARFARIN SODIUM) 2.5 Mg Tablet, 2.5 MG PO [id number] 03/20/17 Albuterol Sulfate 0.083% (ALBUTEROL SULFATE 0.083%) 2.5 Mg/3 Ml Vial.neb, 2.5 MG INH Q6H PRN for WHEEZING, INH 03/20/17 Cholecalciferol (Vitamin D3) (VITAMIN D) 1,000 Unit Tablet, 1000 UNIT PO DAILY 03/20/17 Lisinopril (LISINOPRIL) 10 Mg Tablet, 5 MG PO QDAY, TAB 03/20/17 Atorvastatin Calcium (LIPITOR) 40 Mg Tablet, 1 TAB PO QHS, TAB 03/20/17 Fluticasone/Vilanterol (Breo Ellipta 200-25 Mcg INH) 1 Each Blst.w.dev, 1 INH ALER INH QDAY 03/20/17 Alendronate Sodium (FOSAMAX) 70 Mg Tablet, 70 MG PO QWK, TAB 03/20/17 Gabapentin (GABAPENTIN) 300 Mg Capsule, 300 MG PO BID, CAPSULE 03/20/17 Calcium Carbonate (CALCIUM) 600 Mg Tablet, 600 MG PO BID 03/20/17 Aspirin (ASPIR 81) 81 Mg Tablet.dr, 81 MG PO QDAY, TAB 07/10/15 Cetirizine Hcl (ZYRTEC) 10 Mg Capsule, 10 MG PO QDAY, CAPSULE 06/25/15 Vitamin E Mixed (VITAMIN E) 100 Unit Tablet, 100 UNIT PO DAILY 06/25/15 Ascorbic Acid (VITAMIN C) 500 Mg Capsule.er, 500 MG PO DAILY 06/25/15 Triamcinolone Acetonide 0.1% Oint 15 Gm Tube (TRIAMCINOLONE ACETONIDE 0.1% 15 GM TUBE) 15 Gm Oint...g., 1 ANGELO TP DAILY PRN for RASH, TUBE 06/25/15 Albuterol Sulfate 90 Mcg/Act (PROAIR HFA 90 MCG/ACT) 8.5 Gm Hfa.aer.ad, 2 PUFF IH QID PRN for SHORTNESS OF BREATH 06/25/15 Levothyroxine Sodium (LEVOXYL) 100 Mcg Tablet, 100 MCG PO QDAY, TAB 06/25/15 Epinephrine (EPIPEN 2-UZMA) 0.3 Mg/0.3 Ml Pen.injctr, 0.3 MG IM PRN PRN for allergic reaction to beesting 06/25/15 Hydrocodone Bit/Acetaminophen (NORCO 5-325 TABLET) 1 Each Tablet, 1 EACH PO Q6H PRN for chest pain 06/25/15 Fluticasone Prop 50 Mcg Ns (FLONASE 50 MCG NS) 16 Gm [place].susp, 1 SPRAYS NS BID, BOT 06/01/15 [place]-3 Fatty Acids/Fish Oil (FISH OIL 1,000 MG CAPSULE) 1 Each Capsule, 1 EACH PO DAILY, CAPSULE 06/01/15 Glucosa [place] 2KCL/Chondroitin [place] (GLUCOSAMINE & CHONDROITIN CAP) 1 Each Capsule, 1 TAB PO BID, CAPSULE 06/01/15 Allopurinol (ZYLOPRIM) 300 Mg Tablet, 300 MG PO QDAY, TAB 06/01/15 Omeprazole (Omeprazole) 40 Mg Capsule.dr, 40 MG PO DAILY, 0 Refills 06/04/11 Multivitamins (Multivitamin) 1 Tab Tablet, 1 TAB PO DAILY, 0 Refills 06/04/11 Bumetanide (Bumex) 2 Mg Tab, 2 MG PO QDAY, 0 Refills 06/04/11 Zolpidem Tartrate (Ambien) 5 Mg Tab, 5 MG PO QHSprn, 0 Refills 06/04/11 Past Medical/Surgical History Pmhx: pafib, uti, arf, chf, htn, athma, hypothyroid, gout, hyperlipid Pshx: l hip replacement x5 Reviewed Nurses Notes: Yes Hx Smoking: Yes Smoking Status: Former Smoker Exposure to Second Hand Smoke?: No Hx Substance Use Disorder: No Hx Alcohol Use: Yes Constitutional Vital Sign - Last 24 Hours 08/27/18 08/27/18 08/27/18 08/27/18 15:25 15:26 15:35 15:45 Temp 99.3 Pulse 94 94 Resp 18 12 B/P (MAP) 137/57 (83) 137/57 Pulse Ox 93 93 O2 Delivery Nasal Cannula Nasal Cannula O2 Flow Rate 2.0 2 08/27/18 08/27/18 08/27/18 16:05 16:15 16:30 Pulse 83 Resp 10 B/P (MAP) 121/53 (75) 114/42 (66) Pulse Ox 92 O2 Delivery Nasal Cannula O2 Flow Rate 2 Physical Exam General Appearance: The patient is alert, has no immediate need for airway protection and no signs of toxicity. Eyes: Pupils equal and round no pallor or injection, EOMI ENT: no pharyngeal erythema or exudates, Mucous membranes are moist Respiratory: There are no retractions, lungs are clear to auscultation. Cardiovascular: Regular rate and rhythm. pulses are equal and symmetrical Gastrointestinal: Abdomen is soft and non tender, no masses, bowel sounds normal, no guarding, no rigidity or rebound Neurological: Cranial nerves II-XII grossly intact, no sensory or motor loss Skin: Warm and dry, no rashes. Musculoskeletal: Neck is supple non tender, no vertebral tenderness Extremities are nontender, non swollen and have full range of motion. DIFFERENTIAL DIAGNOSIS: After history and physical exam differential diagnosis was considered for Uti, divertic, colitis, pneumonia, kidney stone, pancreatiits, bronchitis, influenza Medical Decision Making Data Points Result Diagram: 08/27/18 1539 08/27/18 1539 Laboratory Hematology Test 08/27/18 15:31 08/27/18 15:39 08/27/18 16:17 Influenza Virus Type A (PCR) Negative (NEGATIVE) Influenza Virus Type B (PCR) Negative (NEGATIVE) Red Blood Count 3.97 M/uL (4.17-5.56) Mean Corpuscular Volume 96.3 fL (80.0-96.0) Mean Corpuscular Hemoglobin 32.1 pg (26.0-33.0) Mean Corpuscular Hemoglobin Concent 33.4 g/dL (32.0-36.0) Red Cell Distribution Width 15.3 % (11.5-14.5) Mean Platelet Volume 9.4 fL (7.2-11.1) Neutrophils (%) (Auto) 88.0 % (39.4-72.5) Lymphocytes (%) (Auto) 5.1 % (17.6-49.6) Monocytes (%) (Auto) 5.5 % (4.1-12.4) Eosinophils (%) (Auto) 1.1 % (0.4-6.7) Basophils (%) (Auto) 0.3 % (0.3-1.4) Nucleated RBC Relative Count (auto) 0.1 /100WBC Neutrophils # (Auto) 14.0 K/uL (2.0-7.4) Lymphocytes # (Auto) 0.8 K/uL (1.3-3.6) Monocytes # (Auto) 0.9 K/uL (0.3-1.0) Eosinophils # (Auto) 0.2 K/uL (0.0-0.5) Basophils # (Auto) 0.1 K/uL (0.0-0.1) Nucleated RBC Absolute Count (auto) 0.01 K/uL Prothrombin Time 22.7 seconds (12.0-14.4) Prothromb Time International Ratio 1.97 Sodium Level 136 mmol/L (137-145) Potassium Level 3.9 mmol/L (3.5-5.0) Chloride Level 103 mmol/L (98-107) Carbon Dioxide Level 21 mmol/L (22-31) Blood Urea Nitrogen 30 mg/dl (7-18) Creatinine 2.00 mg/dl (0.52-1.04) Glomerular Filtration Rate Calc 24.8 Random Glucose 134 mg/dl (75-110) Calcium Level 8.5 mg/dl (8.4-10.2) Total Bilirubin 1.0 mg/dl (0.2-1.3) Aspartate Amino Transf (AST/SGOT) 25 U/L (0-35) Alanine Aminotransferase (ALT/SGPT) 31 U/L (0-56) Alkaline Phosphatase 108 U/L (0-126) C-Reactive Protein 40.3 mg/dl (<1.0) Total Protein 6.5 g/dl (6.3-8.2) Albumin 3.3 g/dl (3.5-5.0) Lipase 12 U/L (23-300) Urine Color Yellow Urine Clarity Cloudy Urine pH 5.0 pH (4.8-9.5) Urine Specific [place] 1.011 Urine Protein 100 mg/dL (NEGATIVE) Urine Glucose (UA) Negative mg/dL (NEGATIVE) Urine Ketones Negative mg/dL (NEGATIVE) Urine Blood Small (NEGATIVE) Urine Nitrite Negative (NEGATIVE) Urine Bilirubin Negative (NEGATIVE) Urine Urobilinogen Negative mg/dL (0.2-1.9) Urine Leukocyte Esterase Large (NEGATIVE) Urine RBC 4 /HPF (0-2/HPF) Urine WBC 542 /HPF (0-5/HPF) Urine WBC Clumps Many /HPF Urine Squamous Epithelial Cells None /LPF (NONE-FEW) Urine Transitional Epithelial Cells Many /LPF (NONE-FEW) Urine Bacteria Negative /HPF (NONE-FEW) Urine Mucus None /HPF (NONE-FEW) Chemistry Test 08/27/18 15:31 08/27/18 15:39 08/27/18 16:17 Influenza Virus Type A (PCR) Negative (NEGATIVE) Influenza Virus Type B (PCR) Negative (NEGATIVE) White Blood Count 15.9 k/uL (4.5-11.0) Red Blood Count 3.97 M/uL (4.17-5.56) Hemoglobin 12.7 g/dL (12.0-16.0) Hematocrit 38.2 % (34.0-47.0) Mean Corpuscular Volume 96.3 fL (80.0-96.0) Mean Corpuscular Hemoglobin 32.1 pg (26.0-33.0) Mean Corpuscular Hemoglobin Concent 33.4 g/dL (32.0-36.0) Red Cell Distribution Width 15.3 % (11.5-14.5) Platelet Count 159 K/uL (150-450) Mean Platelet Volume 9.4 fL (7.2-11.1) Neutrophils (%) (Auto) 88.0 % (39.4-72.5) Lymphocytes (%) (Auto) 5.1 % (17.6-49.6) Monocytes (%) (Auto) 5.5 % (4.1-12.4) Eosinophils (%) (Auto) 1.1 % (0.4-6.7) Basophils (%) (Auto) 0.3 % (0.3-1.4) Nucleated RBC Relative Count (auto) 0.1 /100WBC Neutrophils # (Auto) 14.0 K/uL (2.0-7.4) Lymphocytes # (Auto) 0.8 K/uL (1.3-3.6) Monocytes # (Auto) 0.9 K/uL (0.3-1.0) Eosinophils # (Auto) 0.2 K/uL (0.0-0.5) Basophils # (Auto) 0.1 K/uL (0.0-0.1) Nucleated RBC Absolute Count (auto) 0.01 K/uL Prothrombin Time 22.7 seconds (12.0-14.4) Prothromb Time International Ratio 1.97 Glomerular Filtration Rate Calc 24.8 Calcium Level 8.5 mg/dl (8.4-10.2) Total Bilirubin 1.0 mg/dl (0.2-1.3) Aspartate Amino Transf (AST/SGOT) 25 U/L (0-35) Alanine Aminotransferase (ALT/SGPT) 31 U/L (0-56) Alkaline Phosphatase 108 U/L (0-126) C-Reactive Protein 40.3 mg/dl (<1.0) Total Protein 6.5 g/dl (6.3-8.2) Albumin 3.3 g/dl (3.5-5.0) Lipase 12 U/L (23-300) Urine Color Yellow Urine Clarity Cloudy Urine pH 5.0 pH (4.8-9.5) Urine Specific [place] 1.011 Urine Protein 100 mg/dL (NEGATIVE) Urine Glucose (UA) Negative mg/dL (NEGATIVE) Urine Ketones Negative mg/dL (NEGATIVE) Urine Blood Small (NEGATIVE) Urine Nitrite Negative (NEGATIVE) Urine Bilirubin Negative (NEGATIVE) Urine Urobilinogen Negative mg/dL (0.2-1.9) Urine Leukocyte Esterase Large (NEGATIVE) Urine RBC 4 /HPF (0-2/HPF) Urine WBC 542 /HPF (0-5/HPF) Urine WBC Clumps Many /HPF Urine Squamous Epithelial Cells None /LPF (NONE-FEW) Urine Transitional Epithelial Cells Many /LPF (NONE-FEW) Urine Bacteria Negative /HPF (NONE-FEW) Urine Mucus None /HPF (NONE-FEW) Coagulation Test 08/27/18 15:39 Prothrombin Time 22.7 seconds Prothromb Time International Ratio 1.97 Urinalysis Test 08/27/18 16:17 Urine Color Yellow Urine Clarity Cloudy Urine pH 5.0 pH (4.8-9.5) Urine Specific [place] 1.011 Urine Protein 100 mg/dL (NEGATIVE) Urine Glucose (UA) Negative mg/dL (NEGATIVE) Urine Ketones Negative mg/dL (NEGATIVE) Urine Blood Small (NEGATIVE) Urine Nitrite Negative (NEGATIVE) Urine Bilirubin Negative (NEGATIVE) Urine Urobilinogen Negative mg/dL (0.2-1.9) Urine Leukocyte Esterase Large (NEGATIVE) Urine RBC 4 /HPF (0-2/HPF) Urine WBC 542 /HPF (0-5/HPF) Urine WBC Clumps Many /HPF Urine Squamous Epithelial Cells None /LPF (NONE-FEW) Urine Transitional Epithelial Cells Many /LPF (NONE-FEW) Urine Bacteria Negative /HPF (NONE-FEW) Urine Mucus None /HPF (NONE-FEW) Microbiology Microbiology Date/Time Source Procedure Growth Status 08/27/18 16:17 Vaginal Wet Prep - Final Complete ED Course/Re-evaluation Clinical Indication for ER IV: Hydration, IV Access ED Course check labs and imaging 08/27/2018 4:15:02 pm was called into room to look at pts labia while nurse was performing a catherization. Pt has swollen red labia with a white discharg e. Pt states that she has had problems is pain in that area and pcp had her on premarin cream. will obtain a wet prep to rule out yeast. 08/27/2018 4:37:12 pm Wet prep did not show yeast but did show clue cells suggestive of bacterial vaginosis. 08/27/2018 4:50:06 pm Spoke with pt about her labs and xrays. will treat her bacterial vaginosis with flagyl. Pt states she has been on levaquin in past for her pneumonia without any difficultly. Pt does have a INR monitor at home and can check her coumadin levels and adjust if they increase as per her pcp. Pt has home oxygen and is on 2 L . PTs urine shows leuks. will await cultures. Hopefully levaquin will cover. Decision to Disposition Date: Aug 27, 2018 Decision to Disposition Time: 16:52 Depart Departure Latest Vital Signs Vital Signs Date Time Temp Pulse Resp B/P (MAP) Pulse Ox O2 Delivery O2 Flow Rate FiO2 08/27/18 16:30 114/42 (66) 08/27/18 16:15 83 10 92 Nasal Cannula 2 08/27/18 15:26 99.3 Impression: Primary Impression: BV (bacterial vaginosis) Additional Impressions: Community acquired bacterial pneumonia UTI (urinary tract infection) Dehydration Condition: Improved Disposition: HOME OR SELF-CARE Referrals: JOSE SMITH (PCP) 5 Days New Scripts Levofloxacin 500 Mg Tab (LEVAQUIN 500 MG TAB) 500 Mg Tablet 500 MG PO DAILY, #7 TAB Prov: LAURORA,RAHEL V DO 08/27/18 Metronidazole (FLAGYL) 500 Mg Tablet 500 MG PO BID, #7 TAB Prov: LAURORA,RAHEL V DO 08/27/18 Departure Forms: ER Transition Record, Medications Reconciliation, Patient Portal Information Patient Instructions: Bacterial Pneumonia (ED), Bacterial Vaginosis (ED) Additional Instructions: Your chest xray showed an early pneumonia in your left lung base. Your vaginal culture was positive for bacterial vaginosis. You will need antibiotics for both. Levaquin once a day (start tomorrow) Flagyl twice a day (start in the morning). Antibiotics will make your Coumadin/warfarin levels change. Your blood can become too thin and your dosage may need to be adjusted. Recommend checking your INR/PT levels while on your antibiotic and call your doctor to adjust as needed. Return if symptoms do not improve. Problem Qualifiers Additional Impressions: UTI (urinary tract infection) Urinary tract infection type: site unspecified Hematuria presence: without hematuria Qualified Codes: N39.0 - Urinary tract infection, site not specified RAHEL BARR DO Aug 27, 2018 15:34
[2018-08-27 16:02] LABS: PLATELET COUNT, AUTOMATED 159 K/uL (150-450)
[2018-08-27 16:05] LABS: INR 1.97
[2018-08-27] MEDS ORDERED: NS(*) 0.9% 1000 ML BAG 1,000 ML IV ONE (16:05)
--- NOTE | 2018-08-27 16:14 | RADIOLOGY IMAGING REPORT ---
FACILITY: [facility] PATIENT NAME: Karen Black : 1950 MR: [id number] V: [id number] EXAM DATE: ORDERING PHYSICIAN: RAHEL BARR TECHNOLOGIST: Location: Patient: Karen Black : 1950 Visit/Account:[id number] Date of Sevice: 08/27/2018 2 VIEWS CHEST INDICATION: Fever. COMPARISON: 07/11/2018. FINDINGS: Cardiac silhouette remains enlarged mildly but unchanged. Mediastinal silhouette and pulmonary vessel s within normal limits. Patchy hazy opacities seen in the posterior inferior left lower lobe which is not appreciated previou sly. The remaining lung byrnes are clear. Small left pleural effusion. No right effusion. No pneumothorax. No discrete nodule. Upper abdomen is unremarkable. No acute bony abnormality. Surgical anchor in the left humeral head. IMPRESSION: 1. Patchy hazy opacities seen in the posterior left lower lobe worrisome for early pneumonia. Small l eft pleural effusion. Suggest follow-up films to assess for clearing or other etiologies. 2. Stable mildly enlarged cardiac silhouette without edema. Report Dictated By: Florentino Roach at 08/27/2018 4:08 PM Report E-Signed By: Florentino Roach at 08/27/2018 4:11 PM WSN:[id number]
[2018-08-27] MEDS ORDERED: METRONIDAZOLE 500 MG TABLET PO ONE (16:50)
[2018-08-27] MEDS ORDERED: LEVOFLOXACIN 500 MG TAB PO ONE (16:50)
[2018-08-27] MEDS ORDERED: LEVO-85 PO (16:53)
[2018-08-27] MEDS ORDERED: METR-1 PO (16:53)
[2018-08-27] MEDS ORDERED: ACETAMINOPHEN 500 MG TAB PO ONE (17:40)
[2018-08-27 18:23] VITALS: BP 118/56
[2018-08-28] MEDS ORDERED: LISI-374 PO (14:52)
[2018-08-28] MEDS ORDERED: LEV112 PO (14:52)
[2018-08-28] MEDS ORDERED: FURO-45 PO (14:54)
[2018-08-28] MEDS ORDERED: METF-452 PO (14:54)
[2018-08-28] MEDS ORDERED: DILT-102 PO (14:55)
[2018-08-28] MEDS ORDERED: POTA-28 PO (14:57)
== END 2018-08-27 18:43 | disposition home or self-care (01) ==
LOC: ER 15:35
DX: N76.0 Acute vaginitis (principal); J15.9 Unspecified bacterial pneumonia; N39.0 Urinary tract infection, site not specified; E86.0 Dehydration
CPT/HCPCS: 36415; 71046; 81001; 83690; 85025; 85610; 86140; 87040; 87077; 87088; 87186; 87210; 87502; 96360; 99283; A4353; A9270; J7030; 82040; 82247; 82310; 82374; 82435; 82565; 82947; 84075; 84132; 84155; 84295; 84450; 84460; 84520

== ENCOUNTER 2018-08-28 11:13 | Inpatient (IN) | payer MEDICARE, OTHER ==
[~2018-08-28] VITALS: Ht 172.7 cm; Wt 102.1 kg
[~2018-08-28 11:13] MED LIST changes: +LEVO-85 PO; +METR-1 PO
[2018-08-28] MEDS ORDERED: CEFEPIME HCL 2 GM VIAL IVP ONE (11:40)
--- NOTE | 2018-08-28 11:48 | ER Report ---
History and Physical Time Seen By MD: 11:25 Hx. of Stated Complaint: JUST NOT FEELING WELL WORSE BODY ACHES DIFF BREATHING HPI/ROS CHIEF COMPLAINT: Positive blood cultures HISTORY OF PRESENT ILLNESS: Patient's initial symptoms began this past Tuesday with left lower quadrant abdominal pain as well as fever and chills. She is been using Tylenol on and off for fever. She reports mild dysuria. She was diagnosed with urinary tract infection and bacterial vaginosis. She was started on Flagyl as well as Levaquin to treat the UTI. Last evening her blood cultures both anaerobic and aerobic turn positive for Escherichia coli. Patient was called she is not feeling better she was called back to the emergency department for reevaluation. REVIEW OF SYSTEMS: Constitutional: Positive fever positive chills Eyes: No discharge. ENT: No sore throat. Cardiovascular: No chest pain, no palpitations. Respiratory: No cough, no shortness of breath. Gastrointestinal: Suprapubic abdominal pain positive for nausea Genitourinary: Mild dysuria Musculoskeletal: No back pain. Skin: No rashes. Neurological: Generalized headache Allergies: Coded Allergies: Penicillins (Verified Allergy, Intermediate, RASH, 08/28/18) erythromycin base (Verified Allergy, Intermediate, RASH, 08/28/18) morphine (Verified Allergy, Intermediate, N&v, 08/28/18) nickel (Verified Allergy, Intermediate, rash, hives, 08/28/18) codeine (Verified Allergy, Mild, N&V, 08/28/18) salmeterol (Verified Allergy, Mild, 08/28/18) bacitracin (Verified Allergy, Unknown, 08/28/18) latex (Verified Allergy, Unknown, 08/28/18) neomycin (Verified Allergy, Unknown, 08/28/18) polymyxin B (Verified Allergy, Unknown, 08/28/18) pramoxine (Verified Allergy, Unknown, 08/28/18) Home Meds Active Scripts Levofloxacin 500 Mg Tab (LEVAQUIN 500 MG TAB) 500 Mg Tablet, 500 MG PO DAILY, #7 TAB Prov:LAURORA,RAHEL V DO 08/27/18 Metronidazole (FLAGYL) 500 Mg Tablet, 500 MG PO BID, #7 TAB Prov:LAURORA,RAHEL V DO 08/27/18 Reported Medications Hydromorphone Hcl (DILAUDID) 2 Mg Tablet, 2 MG PO 07/26/18 Acetaminophen (ACETAMINOPHEN) 325 Mg Tablet, 650 MG PO BID, TAB 03/20/17 Warfarin Sodium (WARFARIN SODIUM) 2.5 Mg Tablet, 3.75 MG PO We 03/20/17 Warfarin Sodium (WARFARIN SODIUM) 2.5 Mg Tablet, 2.5 MG PO [id number] 03/20/17 Albuterol Sulfate 0.083% (ALBUTEROL SULFATE 0.083%) 2.5 Mg/3 Ml Vial.neb, 2.5 MG INH Q6H PRN for WHEEZING, INH 03/20/17 Cholecalciferol (Vitamin D3) (VITAMIN D) 1,000 Unit Tablet, 1000 UNIT PO DAILY 03/20/17 Lisinopril (LISINOPRIL) 10 Mg Tablet, 5 MG PO QDAY, TAB 03/20/17 Atorvastatin Calcium (LIPITOR) 40 Mg Tablet, 1 TAB PO QHS, TAB 03/20/17 Fluticasone/Vilanterol (Breo Ellipta 200-25 Mcg INH) 1 Each Blst.w.dev, 1 INHALE R INH QDAY 03/20/17 Alendronate Sodium (FOSAMAX) 70 Mg Tablet, 70 MG PO QWK, TAB 03/20/17 Gabapentin (GABAPENTIN) 300 Mg Capsule, 300 MG PO BID, CAPSULE 03/20/17 Calcium Carbonate (CALCIUM) 600 Mg Tablet, 600 MG PO BID 03/20/17 Aspirin (ASPIR 81) 81 Mg Tablet.dr, 81 MG PO QDAY, TAB 07/10/15 Cetirizine Hcl (ZYRTEC) 10 Mg Capsule, 10 MG PO QDAY, CAPSULE 06/25/15 Vitamin E Mixed (VITAMIN E) 100 Unit Tablet, 100 UNIT PO DAILY 06/25/15 Ascorbic Acid (VITAMIN C) 500 Mg Capsule.er, 500 MG PO DAILY 06/25/15 Triamcinolone Acetonide 0.1% Oint 15 Gm Tube (TRIAMCINOLONE ACETONIDE 0.1% 15 GM TUBE) 15 Gm Oint...g., 1 ANGELO TP DAILY PRN for RASH, TUBE 06/25/15 Albuterol Sulfate 90 Mcg/Act (PROAIR HFA 90 MCG/ACT) 8.5 Gm Hfa.aer.ad, 2 PUFF IH QID PRN for SHORTNESS OF BREATH 06/25/15 Levothyroxine Sodium (LEVOXYL) 100 Mcg Tablet, 100 MCG PO QDAY, TAB 06/25/15 Epinephrine (EPIPEN 2-UZMA) 0.3 Mg/0.3 Ml Pen.injctr, 0.3 MG IM PRN PRN for allergic reaction to beesting 06/25/15 Hydrocodone Bit/Acetaminophen (NORCO 5-325 TABLET) 1 Each Tablet, 1 EACH PO Q6H PRN for chest pain 06/25/15 Fluticasone Prop 50 Mcg Ns (FLONASE 50 MCG NS) 16 Gm [place].susp, 1 SPRAYS NS BID, BOT 06/01/15 [place]-3 Fatty Acids/Fish Oil (FISH OIL 1,000 MG CAPSULE) 1 Each Capsule, 1 EACH PO DAILY, CAPSULE 06/01/15 Gluc[place] 2KCL/Chondroitin [place] (GLUCOSAMINE & CHONDROITIN CAP) 1 Each Capsule, 1 TAB PO BID, CAPSULE 06/01/15 Allopurinol (ZYLOPRIM) 300 Mg Tablet, 300 MG PO QDAY, TAB 06/01/15 Omeprazole (Omeprazole) 40 Mg Capsule.dr, 40 MG PO DAILY, 0 Refills 06/04/11 Multivitamins (Multivitamin) 1 Tab Tablet, 1 TAB PO DAILY, 0 Refills 06/04/11 Bumetanide (Bumex) 2 Mg Tab, 2 MG PO QDAY, 0 Refills 06/04/11 Zolpidem Tartrate (Ambien) 5 Mg Tab, 5 MG PO QHSprn, 0 Refills 06/04/11 Past Medical/Surgical History Past medical history for sepsis, liver failure, renal insufficiency, pneumonia, hypothyroidism, hyperlipidemia history of paroxysmal atrial fibrillation on Coumadin history of asthma history of right knee replacement history of total hip replacement Hx Smoking: Yes Smoking Status: Former Smoker Exposure to Second Hand Smoke?: No Hx Substance Use Disorder: No Hx Alcohol Use: Yes Constitutional Vital Sign - Last 24 Hours 08/28/18 08/28/18 08/28/18 08/28/18 11:26 11:27 12:13 12:17 Temp 103.1 Pulse 100 93 Resp 32 B/P (MAP) 145/55 (85) 145/55 158/60 (92) Pulse Ox 93 94 O2 Delivery Nasal Cannula 08/28/18 08/28/18 12:30 12:43 Temp 102.8 Pulse 92 B/P (MAP) 159/85 (109) Pulse Ox 94 Physical Exam General/Constitutional: Patient is awake, alert, ill-appearing but nontoxic Head: Normocephalic and atraumatic. Eyes: Conjunctival clear, Pupils are equal and reactive to light. Extraocular muscles are intact and symmetrical. Sclera are clear and anicteric. Ears:External canals are clear. Tympanic membranes are clear with normal landmarks and light reflex. Nares: No rhinorrhea or bleeding. Turbinates are pink and moist. Oropharyngeal: Mucous membranes are moist. There is no pharyngeal erythema or exudate. There are no palatal petechiae. Uvula is midline and symmetrical. Neck: Supple, no adenopathy. Cardiovascular: Heart is regular rate and rhythm without audible murmurs, rubs or gallops. Pulmonary: Lungs are clear to auscultation bilaterally. There are no wheezes, rales, or rhonchi. Chest rise is symmetrical Abdomen: Soft, nontender, no guarding or peritoneal signs. Extremities: Right upper extremity is in a sling secondary to rotator cuff tear Neuro: Alert and oriented X3, Cranial nerves 2 thru 12 are intact and symmetrical. Patient has normal gait. Skin: No rashes, skin is warm dry and well perfused. Medical Decision Making Data Points Result Diagram: 08/28/18 1207 08/28/18 1207 Laboratory Hematology Test 08/28/18 12:07 08/28/18 12:18 08/28/18 12:42 Red Blood Count 3.83 M/uL (4.17-5.56) Mean Corpuscular Volume 97.4 fL (80.0-96.0) Mean Corpuscular Hemoglobin 32.1 pg (26.0-33.0) Mean Corpuscular Hemoglobin Concent 32.9 g/dL (32.0-36.0) Red Cell Distribution Width 14.9 % (11.5-14.5) Mean Platelet Volume 9.2 fL (7.2-11.1) Neutrophils (%) (Auto) 88.3 % (39.4-72.5) Lymphocytes (%) (Auto) 5.4 % (17.6-49.6) Monocytes (%) (Auto) 5.9 % (4.1-12.4) Eosinophils (%) (Auto) 0.2 % (0.4-6.7) Basophils (%) (Auto) 0.2 % (0.3-1.4) Nucleated RBC Relative Count (auto) 0.0 /100WBC Neutrophils # (Auto) 11.2 K/uL (2.0-7.4) Lymphocytes # (Auto) 0.7 K/uL (1.3-3.6) Monocytes # (Auto) 0.7 K/uL (0.3-1.0) Eosinophils # (Auto) 0.0 K/uL (0.0-0.5) Basophils # (Auto) 0.0 K/uL (0.0-0.1) Nucleated RBC Absolute Count (auto) 0.01 K/uL Peripheral Blood Smear Yes Y/N Sodium Level 137 mmol/L (137-145) Potassium Level 3.5 mmol/L (3.5-5.0) Chloride Level 106 mmol/L (98-107) Carbon Dioxide Level 21 mmol/L (22-31) Blood Urea Nitrogen 29 mg/dl (7-18) Creatinine 1.80 mg/dl (0.52-1.04) Glomerular Filtration Rate Calc 28.0 Random Glucose 126 mg/dl (75-110) Lactate 1.8 mmol/L (0.7-2.1) Calcium Level 8.7 mg/dl (8.4-10.2) Total Bilirubin 0.7 mg/dl (0.2-1.3) Aspartate Amino Transf (AST/SGOT) 30 U/L (0-35) Alanine Aminotransferase (ALT/SGPT) 33 U/L (0-56) Alkaline Phosphatase 118 U/L (0-126) Total Protein 6.4 g/dl (6.3-8.2) Albumin 3.3 g/dl (3.5-5.0) Prothrombin Time 23.1 seconds (12.0-14.4) Prothromb Time International Ratio 2.01 Urine Color Straw Urine Clarity Clear Urine pH 6.0 pH (4.8-9.5) Urine Specific [place] 1.005 Urine Protein Negative mg/dL (NEGATIVE) Urine Glucose (UA) Negative mg/dL (NEGATIVE) Urine Ketones Negative mg/dL (NEGATIVE) Urine Blood Small (NEGATIVE) Urine Nitrite Negative (NEGATIVE) Urine Bilirubin Negative (NEGATIVE) Urine Urobilinogen Negative mg/dL (0.2-1.9) Urine Leukocyte Esterase Trace (NEGATIVE) Urine RBC 1 /HPF (0-2/HPF) Urine WBC 5 /HPF (0-5/HPF) Urine Squamous Epithelial Cells None /LPF (NONE-FEW) Urine Bacteria Negative /HPF (NONE-FEW) Urine Mucus None /HPF (NONE-FEW) Chemistry Test 08/28/18 12:07 08/28/18 12:18 08/28/18 12:42 White Blood Count 12.7 k/uL (4.5-11.0) Red Blood Count 3.83 M/uL (4.17-5.56) Hemoglobin 12.3 g/dL (12.0-16.0) Hematocrit 37.3 % (34.0-47.0) Mean Corpuscular Volume 97.4 fL (80.0-96.0) Mean Corpuscular Hemoglobin 32.1 pg (26.0-33.0) Mean Corpuscular Hemoglobin Concent 32.9 g/dL (32.0-36.0) Red Cell Distribution Width 14.9 % (11.5-14.5) Platelet Count 148 K/uL (150-450) Mean Platelet Volume 9.2 fL (7.2-11.1) Neutrophils (%) (Auto) 88.3 % (39.4-72.5) Lymphocytes (%) (Auto) 5.4 % (17.6-49.6) Monocytes (%) (Auto) 5.9 % (4.1-12.4) Eosinophils (%) (Auto) 0.2 % (0.4-6.7) Basophils (%) (Auto) 0.2 % (0.3-1.4) Nucleated RBC Relative Count (auto) 0.0 /100WBC Neutrophils # (Auto) 11.2 K/uL (2.0-7.4) Lymphocytes # (Auto) 0.7 K/uL (1.3-3.6) Monocytes # (Auto) 0.7 K/uL (0.3-1.0) Eosinophils # (Auto) 0.0 K/uL (0.0-0.5) Basophils # (Auto) 0.0 K/uL (0.0-0.1) Nucleated RBC Absolute Count (auto) 0.01 K/uL Peripheral Blood Smear Yes Y/N Glomerular Filtration Rate Calc 28.0 Lactate 1.8 mmol/L (0.7-2.1) Calcium Level 8.7 mg/dl (8.4-10.2) Total Bilirubin 0.7 mg/dl (0.2-1.3) Aspartate Amino Transf (AST/SGOT) 30 U/L (0-35) Alanine Aminotransferase (ALT/SGPT) 33 U/L (0-56) Alkaline Phosphatase 118 U/L (0-126) Total Protein 6.4 g/dl (6.3-8.2) Albumin 3.3 g/dl (3.5-5.0) Prothrombin Time 23.1 seconds (12.0-14.4) Prothromb Time International Ratio 2.01 Urine Color Straw Urine Clarity Clear Urine pH 6.0 pH (4.8-9.5) Urine Specific [place] 1.005 Urine Protein Negative mg/dL (NEGATIVE) Urine Glucose (UA) Negative mg/dL (NEGATIVE) Urine Ketones Negative mg/dL (NEGATIVE) Urine Blood Small (NEGATIVE) Urine Nitrite Negative (NEGATIVE) Urine Bilirubin Negative (NEGATIVE) Urine Urobilinogen Negative mg/dL (0.2-1.9) Urine Leukocyte Esterase Trace (NEGATIVE) Urine RBC 1 /HPF (0-2/HPF) Urine WBC 5 /HPF (0-5/HPF) Urine Squamous Epithelial Cells None /LPF (NONE-FEW) Urine Bacteria Negative /HPF (NONE-FEW) Urine Mucus None /HPF (NONE-FEW) Coagulation Test 08/28/18 12:18 Prothrombin Time 23.1 seconds Prothromb Time International Ratio 2.01 Urinalysis Test 08/28/18 12:42 Urine Color Straw Urine Clarity Clear Urine pH 6.0 pH (4.8-9.5) Urine Specific [place] 1.005 Urine Protein Negative mg/dL (NEGATIVE) Urine Glucose (UA) Negative mg/dL (NEGATIVE) Urine Ketones Negative mg/dL (NEGATIVE) Urine Blood Small (NEGATIVE) Urine Nitrite Negative (NEGATIVE) Urine Bilirubin Negative (NEGATIVE) Urine Urobilinogen Negative mg/dL (0.2-1.9) Urine Leukocyte Esterase Trace (NEGATIVE) Urine RBC 1 /HPF (0-2/HPF) Urine WBC 5 /HPF (0-5/HPF) Urine Squamous Epithelial Cells None /LPF (NONE-FEW) Urine Bacteria Negative /HPF (NONE-FEW) Urine Mucus None /HPF (NONE-FEW) ED Course/Re-evaluation ED Course 08/28/2018 11:52:12 am patient with gram-negative sepsis we'll start the patient on cefepime to cover urinary tract infection likely admission. Decision to Disposition Date: Aug 28, 2018 Decision to Disposition Time: 12:34 Depart Departure Latest Vital Signs Vital Signs Date Time Temp Pulse Resp B/P (MAP) Pulse Ox O2 Delivery O2 Flow Rate FiO2 08/28/18 12:43 102.8 92 94 08/28/18 12:30 159/85 (109) 08/28/18 11:27 32 Nasal Cannula Impression: Primary Impression: UTI (urinary tract infection) Additional Impression: Sepsis Condition: Improved Disposition: Admitted from ER (to Dr De Luna) Referrals: JOSE SMITH (PCP) Problem Qualifiers Primary Impression: UTI (urinary tract infection) Urinary tract infection type: acute cystitis Hematuria presence: without hematuria Qualified Codes: N30.00 - Acute cystitis without hematuria Additional Impression: Sepsis Sepsis type: Escherichia coli Qualified Codes: A41.51 - Sepsis due to Escherichia coli [e. coli] EVERARDO GOLDSTEIN MD Aug 28, 2018 11:48
[2018-08-28] MEDS ORDERED: NS(*) 0.9% 1000 ML BAG 1,000 ML IV ONE ×2 (12:05→12:40)
[2018-08-28 12:19] LABS: PLATELET COUNT, AUTOMATED 148 K/uL (150-450)
--- NOTE | 2018-08-28 12:24 | EKG ---
FACILITY: [facility] [place] PATIENT NAME: LESA LOCK : [id number] MR: [id number] V: [id number] EXAM DATE: ORDERING PHYSICIAN: EVERARDO GOLDSTEIN TECHNOLOGIST: JEY Test Reason : TACHY Blood Pressure : / mmHG Vent. Rate : 090 BPM Atrial Rate : 090 BPM P-R Int : 148 ms QRS Dur : 080 ms QT Int : 360 ms P-R-T Axes : 064 029 054 degrees QTc Int : 440 ms Normal sinus rhythm Possible Anterior infarct (cited on or before 28-AUG-2018) Abnormal ECG When compared with ECG of 16-DEC-2017 13:42, Relatively unchanged Confirmed by EMMA CAMARENA ([id number]) on 08/28/2018 3:25:25 PM Referred By: TRISTON Confirmed By:EMMA CAMARENA
[2018-08-28] MEDS ORDERED: ACETAMINOPHEN 325 MG TAB PO ONE (12:35)
[2018-08-28 12:38] LABS: INR 2.01
--- NOTE | 2018-08-28 13:08 | RADIOLOGY IMAGING REPORT ---
FACILITY: [facility] - [place] PATIENT NAME: Karen Black : 1950 MR: [id number] V: [id number] EXAM DATE: ORDERING PHYSICIAN: EVERARDO GOLDSTEIN TECHNOLOGIST: Location: [facility] Patient: Karen Black : 1950 Visit/Account:[id number] Date of Sevice: 08/28/2018 Exam type: CHEST SINGLE AP History: sepsis Comparison: The 2017. Findings: There has been partial improvement of the patchy airspace consolidation in the medial left lung base. Linear scarring in the medial right lung base remains unchanged. There is no new areas of pulmonar y consolidation. Other has been partial improvement of the small left pleural effusion. Cardiomegal y remains stable. There are postsurgical changes left shoulder IMPRESSION: 1. Partial improvement of the patchy airspace consolidation in the left lung base consistent with in filtrate and/or atelectasis Partial improvement of small left pleural effusion Right basilar scarring and cardiomegaly unchanged Report Dictated By: Talia Leos MD at 08/28/2018 1:03 PM Report E-Signed By: Talia Leos MD at 08/28/2018 1:04 PM WSN:[email or web address]
[2018-08-28] MEDS ORDERED: INSULIN HUM LISPRO 100 UN/ML 3 ML VIAL SUBQ PRN (13:40)
[2018-08-28 14:18] VITALS: BP 141/48
--- NOTE | 2018-08-28 14:38 | History & Physical ---
History of Present Illness Chief Complaint LLQ pain, dysuria, fever History of Present Illness She is a 67- year-old female who presented to the emergency room yesterday with left lower quadrant abdominal pain as well as fever and chills, which began Tuesday. She has been using Tylenol on and off for fever. She reports mild dysuria. She was diagnosed with urinary tract infection and bacterial vaginosis from yesterday's visit and returned back to the emergency department this morning. She was started on Flagyl as well as Levaquin to treat the UTI. Last evening her blood cultures both anaerobic and aerobic turn positive for gram negative kristin, likely E. Coli. She was started on Cefepime in the emergency department for sepsis and received fluid boluses. She was recommended for admission. History Problems: (1) HTN (hypertension) Status: Chronic (2) Anticoagulated on Coumadin Status: Chronic (3) Paroxysmal atrial fibrillation Status: Chronic (4) Hypothyroidism Status: Chronic (5) Asthma Status: Chronic Home Meds Active Scripts Levofloxacin 500 Mg Tab (LEVAQUIN 500 MG TAB) 500 Mg Tablet, 500 MG PO DAILY, #7 TAB Prov:DORIANYUDYFERAHEL V DO 08/27/18 Metronidazole (FLAGYL) 500 Mg Tablet, 500 MG PO BID, #7 TAB Prov:DORIANORARAHEL V DO 08/27/18 Reported Medications Hydromorphone Hcl (DILAUDID) 2 Mg Tablet, 2 MG PO 07/26/18 Acetaminophen (ACETAMINOPHEN) 325 Mg Tablet, 650 MG PO BID, TAB 03/20/17 Warfarin Sodium (WARFARIN SODIUM) 2.5 Mg Tablet, 3.75 MG PO We 03/20/17 Warfarin Sodium (WARFARIN SODIUM) 2.5 Mg Tablet, 2.5 MG PO SuMoTuThFrSa 03/20/17 Albuterol Sulfate 0.083% (ALBUTEROL SULFATE 0.083%) 2.5 Mg/3 Ml Vial.neb, 2.5 MG INH Q6H PRN for WHEEZING, INH 03/20/17 Cholecalciferol (Vitamin D3) (VITAMIN D) 1,000 Unit Tablet, 1000 UNIT PO DAILY 03/20/17 Lisinopril (LISINOPRIL) 10 Mg Tablet, 5 MG PO QDAY, TAB 03/20/17 Atorvastatin Calcium (LIPITOR) 40 Mg Tablet, 1 TAB PO QHS, TAB 03/20/17 Fluticasone/Vilanterol (Breo Ellipta 200-25 Mcg INH) 1 Each Blst.w.dev, 1 INHALER INH QDAY 03/20/17 Alendronate Sodium (FOSAMAX) 70 Mg Tablet, 70 MG PO QWK, TAB 03/20/17 Gabapentin (GABAPENTIN) 300 Mg Capsule, 300 MG PO BID, CAPSULE 03/20/17 Calcium Carbonate (CALCIUM) 600 Mg Tablet, 600 MG PO BID 03/20/17 Aspirin (ASPIR 81) 81 Mg Tablet.dr, 81 MG PO QDAY, TAB 07/10/15 Cetirizine Hcl (ZYRTEC) 10 Mg Capsule, 10 MG PO QDAY, CAPSULE 06/25/15 Vitamin E Mixed (VITAMIN E) 100 Unit Tablet, 100 UNIT PO DAILY 06/25/15 Ascorbic Acid (VITAMIN C) 500 Mg Capsule.er, 500 MG PO DAILY 06/25/15 Triamcinolone Acetonide 0.1% Oint 15 Gm Tube (TRIAMCINOLONE ACETONIDE 0.1% 15 GM TUBE) 15 Gm Oint...g., 1 ANGELO TP DAILY PRN for RASH, TUBE 06/25/15 Albuterol Sulfate 90 Mcg/Act (PROAIR HFA 90 MCG/ACT) 8.5 Gm Hfa.aer.ad, 2 PUFF IH QID PRN for SHORTNESS OF BREATH 06/25/15 Levothyroxine Sodium (LEVOXYL) 100 Mcg Tablet, 100 MCG PO QDAY, TAB 06/25/15 Epinephrine (EPIPEN 2-UZMA) 0.3 Mg/0.3 Ml Pen.injctr, 0.3 MG IM PRN PRN for allergic reaction to beesting 06/25/15 Hydrocodone Bit/Acetaminophen (NORCO 5-325 TABLET) 1 Each Tablet, 1 EACH PO Q6H PRN for chest pain 06/25/15 Fluticasone Prop 50 Mcg Ns (FLONASE 50 MCG NS) 16 Gm [place].susp, 1 SPRAYS NS BID, BOT 06/01/15 [place]-3 Fatty Acids/Fish Oil (FISH OIL 1,000 MG CAPSULE) 1 Each Capsule, 1 EACH PO DAILY, CAPSULE 06/01/15 Glucosa [place] 2KCL/Chondroitin [place] (GLUCOSAMINE & CHONDROITIN CAP) 1 Each Capsule, 1 TAB PO BID, CAPSULE 06/01/15 Allopurinol (ZYLOPRIM) 300 Mg Tablet, 300 MG PO QDAY, TAB 06/01/15 Omeprazole (Omeprazole) 40 Mg Capsule.dr, 40 MG PO DAILY, 0 Refills 06/04/11 Multivitamins (Multivitamin) 1 Tab Tablet, 1 TAB PO DAILY, 0 Refills 06/04/11 Bumetanide (Bumex) 2 Mg Tab, 2 MG PO QDAY, 0 Refills 06/04/11 Zolpidem Tartrate (Ambien) 5 Mg Tab, 5 MG PO QHSprn, 0 Refills 06/04/11 Allergies: Coded Allergies: Penicillins (Verified Allergy, Intermediate, RASH, 08/28/18) erythromycin base (Verified Allergy, Intermediate, RASH, 08/28/18) morphine (Verified Allergy, Intermediate, N&v, 08/28/18) nickel (Verified Allergy, Intermediate, rash, hives, 08/28/18) codeine (Verified Allergy, Mild, N&V, 08/28/18) salmeterol (Verified Allergy, Mild, 08/28/18) bacitracin (Verified Allergy, Unknown, 08/28/18) latex (Verified Allergy, Unknown, 08/28/18) neomycin (Verified Allergy, Unknown, 08/28/18) polymyxin B (Verified Allergy, Unknown, 08/28/18) pramoxine (Verified Allergy, Unknown, 08/28/18) Patient History: FH: CHF (congestive heart failure) FATHER MOTHER FH: type 2 diabetes mellitus BROTHER OR SISTER BROTHER OR SISTER BROTHER OR SISTER BROTHER OR SISTER Hx Smoking: Yes Smoking Status: Former Smoker Exposure to Second Hand Smoke?: No Hx Alcohol Use: Yes Hx Substance Use Disorder: No Social Drug Use: Never Review of Systems All Systems Reviewed/Normal: Yes, Except as Noted Constitutional: Other (fatigue) Gastrointestinal: Abdominal Pain (left lower quadrant) Musculoskeletal: Pain (right shoulder-awaiting replacement) Exam Vital Signs Vital Signs Date Time Temp Pulse Resp B/P (MAP) Pulse Ox O2 Delivery O2 Flow Rate FiO2 08/28/18 13:30 156/61 (92) 08/28/18 13:18 81 96 08/28/18 12:43 102.8 08/28/18 11:27 32 Nasal Cannula General Appearance: Alert, Awake, No Acute Distress, Afebrile Neuro: No Gross deficits Cardiovascular: Regular Rate and Rhythm Respiratory: No Respiratory Distress, Clear to Auscultation GI: Other (Left lower quadrant has pain to palpation) Extremities: Warm, Perfused, Edema (non-pitting edema present) Psych: Alert & Oriented X3, Appropriate Mood & Affect Medical Decision Making Data Points Result Diagram: 08/28/18120608/28/181206 Item Value Date Time Lactate 1.8 mmol/L 08/28/181206 [facility] LAB *LIVE* [address] [place] [address] HEATHER WRIGHT M.D., DIRECTOR OF LABORATORY SERVICES ZAHRA SILVA M.D., PATHOLOGIST RUN DATE: 08/28/18 Specimen Inquiry Report PAGE 1 RUN TIME: 927 PATIENT: LESA LOCK ACCT: [id number] LOC: TYRONE U: [id number] AGE/SX: 67/F ROOM: RE08/27/[address]: RAHEL BARR DO : 1950 BED: DIS: STATUS: DEP ER TLOC: -------- ---- SPEC #: [id number] DEANN: 08/27/18-1602 STATUS: RES REQ #: [id number] RECD: 08/27/18-[address]: RAHEL BARR DO SOURCE: BLOOD PER ENTR: 08/27/18-[address]: JOSE SMITHP SPDESC: ORDERED: BCGS, CULT BLOOD Procedure Result Verified BLOOD CULTURE GRAM STAIN Final 08/28/18 ANAEROBIC BOTTLE POSITIVE GRAM NEGATIVE RODS POSITIVE BLOOD CULTURE GRAM STAIN REPORT CALLED TO: MARIKA BUNDY DATE/TIME REPORT CALLED: 08/28/18 @ 325 CALLED BY: JYOTHI GUNDERSON BLOOD CULTURE Preliminary 08/28/18 AEROBIC BOTTLE POSITIVE GRAM NEGATIVE RODS PRESENT POSITIVE BLOOD CULTURE GRAM STAIN REPORT CALLED TO: MARIKA BUNDY DATE/TIME REPORT CALLED: @ 0534 CALLED BY: JYOTHI GUNDERSON RARE GROWTH ON MAC PLATES. REINCUBATED FOR GROWTH. Edy [facility] *LIVE* [address] [place] [address] HEATHER WRIGHT M.D., DIRECTOR OF LABORATORY SERVICES ZAHRA SILVA M.D., PATHOLOGIST RUN DATE: 08/27/18 Specimen Inquiry Report PAGE 1 RUN TIME: 1630 PATIENT: LESA LOCK ACCT: [id number] LOC: TYRONE U: [id number] AGE/SX: 67/F ROOM: RE08/27/[address]: RAHEL BARR DO : 1950 BED: DIS: STATUS: REG ER TLOC: SPEC #: [id number] DEANN: 08/27/18 STATUS: COMP REQ #: [id number] RECD: 08/27/[address]: RAHEL BARR DO SOURCE: VAGINAL ENTR: 08/27/[address]: JOSE SMITHP SPDESC: ORDERED: WET PREP ----- ------- Procedure Result Verified WET PREP Final 08/27/18-1629 WET PREP MANY SQUAMOUS EPITHELIAL CELLS SEEN MANY WHITE BLOOD CELLS SEEN MODERATE CLUE CELLS SEEN NO SPERM SEEN NO TRICHOMONAS SEEN NO YEAST SEEN Edy [facility] LAB *LIVE* [address] [facility] [place] [address] HEATHER WRIGHT M.D., DIRECTOR OF LABORATORY SERVICES ZAHRA SILVA M.D., PATHOLOGIST RUN DATE: 08/28/18 Specimen Inquiry Report PAGE 1 RUN TIME: 923 PATIENT: LESA LOCK ACCT: [id number] LOC: TYRONE U: [id number] AGE/SX: 67/F ROOM: RE08/27/[address]: RAHEL BARR DO : 1950 BED: DIS: STATUS: DEIDRE HANSEN TLOC: SPEC #: [id number] DEANN: 08/27/18 STATUS: RES REQ #: [id number] RECD: 08/27/[address]: RAHEL BARR DO SOURCE: MARK ENTR: 08/27/18-[address]: JOSE SMITH [facility]: ORDERED: CULT URINE Procedure Result Verified URINE CULTURE Preliminary 08/28/18 Organism 1 GRAM NEGATIVE KRISTIN <10,000 COL/ML ID AND SENSITIVITY TO FOLLOW Assessment and Plan Problems: (1) Sepsis Status: Acute Assessment & Plan: Likely secondary to UTI. She was admitted with elevated WBC count, fever, and positive blood cultures. Blood cultures growing gram negative kristin, likely E. Coli. She will be given IV hydration, and will continue Cefepime for antibiotic. (2) UTI (urinary tract infection) Status: Acute Assessment & Plan: Urine culture showing gram negative kristin, sensitivities still pending. She will be placed on Cefepime for probable E. Coli coverage. She will get IV hydration. (3) Community acquired bacterial pneumonia Status: Acute Assessment & Plan: She did have abnormal chest x-ray, suggesting possible community acquired pneumonia. The Cefepime should cover her for both pneumonia and UTI. Continue to monitor. (4) BV (bacterial vaginosis) Status: Acute Assessment & Plan: She was found to have clue cells from wet prep. She was started on Flagyl in the emergency department 08/27. She will continue Flagyl. (5) Hypothyroidism Status: Chronic Assessment & Plan: She is on chronic treatment with Levothyroxine. (6) Paroxysmal atrial fibrillation Status: Chronic Assessment & Plan: She is on chronic treatment with Warfarin. (7) Asthma Status: Chronic Assessment & Plan: She is on Breo and albuterol inhalers. (8) HTN (hypertension) Status: Chronic Assessment & Plan: She is on chronic treatment with Lisinopril and Lasix. These have been started with hold parameters. (9) Type 2 diabetes mellitus Status: Chronic Assessment & Plan: She is on chronic treatment with Metformin. She reports having little appetite. We will hold Metformin and cover her with sliding scale insulin, until she is eating better. She will also have AC/HS blood glucose checks. (10) CKD (chronic kidney disease) stage 3, GFR 30-59 ml/min Status: Chronic Assessment & Plan: Creatinine is 1.8 upon admission, which is down from 2.0 yesterday. Continue to monitor. Venous Thromboembolism Antithrombotics Is Pt On Any Antithrombotics?: Yes Exam Sepsis Risk: Possible Severe Sepsis Risk Problem Qualifiers (1) Sepsis: Sepsis type: Escherichia coli Qualified Codes: A41.51 - Sepsis due to Escherichia coli [e. coli] (2) UTI (urinary tract infection): Urinary tract infection type: acute cystitis Hematuria presence: without hematuria Qualified Codes: N30.00 - Acute cystitis without hematuria KT BLOOD Aug 28, 2018 14:38
[2018-08-28] MEDS ORDERED: LEV112 PO (14:52)
[2018-08-28] MEDS ORDERED: LISI-374 PO (14:52)
[2018-08-28] MEDS ORDERED: METF-452 PO (14:54)
[2018-08-28] MEDS ORDERED: FURO-45 PO (14:54)
[2018-08-28] MEDS ORDERED: DILT-102 PO (14:55)
[2018-08-28] MEDS ORDERED: POTA-28 PO (14:57)
[2018-08-28] MEDS ORDERED: ALBUTEROL 2.5 MG/3 ML NEB INH PRN (15:10)
--- NOTE | 2018-08-28 17:45 | RADIOLOGY IMAGING REPORT ---
FACILITY: [facility] [place] PATIENT NAME: Karen Black : 1950 MR: [id number] V: [id number] EXAM DATE: ORDERING PHYSICIAN: EMMA CAMARENA TECHNOLOGIST: Location: [facility] [place] Patient: Karen Black : 1950 Visit/Account:[id number] Date of Sevice: 08/28/2018 KIDNEYS EXAMINATION: Renal ultrasound. History: Sepsis and UTI COMPARISON STUDIES: FINDINGS: Kidneys: Right kidney- 9.8 x 4.9 x 4.9 cm Left kidney- 12.2 x 5.7 x 6.1 cm Uniform and symmetric blood flow in each kidney by Doppler ultrasound. Hydronephrosis: none Resistive index on the right 0.69 on the left 0.65 Bladder: Prevoid volume 124 mL. The patient had a Ariza catheter in place. Post for residual was no t obtained. Right ureteral jet was identified although the left ureteral jet was not seen Abdominal aorta and IVC: Aorta and IVC are patent by Doppler ultrasound. IMPRESSION: Kidneys appear grossly unremarkable sonographically The bladder was partially decompressed with Ariza catheter Right ureteral jet was identified of both the left ureteral jet was not seen Report Dictated By: Talia Leos MD at 08/28/2018 5:40 PM Report E-Signed By: Talia Leos MD at 08/28/2018 5:42 PM WSN:[email or web address]
[2018-08-28] MEDS: ACETAMINOPHEN 325 MG TAB PO PRN (17:59)
[2018-08-28 19:36] VITALS: BP 143/57
[2018-08-28] MEDS: METRONIDAZOLE 500 MG TABLET PO SCH (20:22)
[2018-08-28] MEDS: FLUTICASONE PROP 0.05% 16 GM ENA SCH (20:23)
[2018-08-28] MEDS: ATORVASTATIN 40 MG TAB PO SCH (20:24)
[2018-08-28] MEDS: traMADol 50 MG TAB PO PRN (21:36)
[2018-08-28] MEDS: LOPERAMIDE HCL 2 MG CAP PO PRN (21:37)
[2018-08-28 22:31] VITALS: BP 150/58
[2018-08-28] MEDS: CEFEPIME HCL 2 GM VIAL IVP SCH (22:34)
[2018-08-29 03:26] VITALS: BP 146/58
[2018-08-29] MEDS: ACETAMINOPHEN 325 MG TAB PO PRN (03:30)
[2018-08-29] MEDS: LEVOTHYROXINE SOD 0.112 MG TAB PO SCH (05:29)
[2018-08-29 06:04] LABS: INR 2.11
[2018-08-29 06:16] LABS: PLATELET COUNT, AUTOMATED 121 K/uL (150-450)
[2018-08-29 06:45] VITALS: BP 130/53
[2018-08-29 08:26] VITALS: Ht 172.7 cm; Wt 102.1 kg
[2018-08-29] MEDS: METRONIDAZOLE 500 MG TABLET PO SCH ×2 (08:27→20:15)
[2018-08-29] MEDS: ALLOPURINOL 300 MG TAB PO SCH (08:27)
[2018-08-29] MEDS: PANTOPRAZOLE SOD 40 MG TABEC PO SCH (08:27)
[2018-08-29] MEDS: ASPIRIN 81 MG CHEW PO SCH (08:27)
[2018-08-29] MEDS: CETIRIZINE HCL 10 MG TAB PO SCH (08:27)
[2018-08-29] MEDS: DILTIAZEM CD 120 MG CAPCR PO SCH (08:27)
[2018-08-29] MEDS: FLUTICASONE PROP 0.05% 16 GM ENA SCH ×2 (08:28→20:15)
[2018-08-29] MEDS ORDERED: FLUTICASONE/VILANTEROL 1 EACH INHALER INH SCH (09:00)
[2018-08-29] MEDS ORDERED: LISINOPRIL 20 MG TAB PO SCH (09:00)
[2018-08-29] MEDS ORDERED: FUROSEMIDE 20 MG TAB PO SCH (09:00)
[2018-08-29] MEDS ORDERED: POTASSIUM CHL 10 MEQ TABCR PO SCH (09:00)
[2018-08-29] MEDS ORDERED: [UNRECOGNIZED DRUG - OTHER] INH SCH (09:00)
[2018-08-29] MEDS ORDERED: FLUTICASONE/VILANTEROL 1 EACH INHALER INH ONE (10:00)
--- NOTE | 2018-08-29 10:25 | Hospitalist Progress Note ---
Subjective Progress Notes Subjective This patient was admitted for urinary tract infection. She had no acute events overnight. Patient Complains of: Cardiovascular: No: Chest Pain Respiratory: No: Shortness of Breath Physical Exam Vital Signs Date Time Temp Pulse Resp B/P (MAP) Pulse Ox O2 Delivery O2 Flow Rate FiO2 08/29/18 06:45 98.6 58 16 130/53 (78) 97 Nasal Cannula 2.0 Intake and Output 08/29/18 06:59 Intake Total 3321 ml Output Total 2650 ml Balance 671 ml Intake Oral 1321 ml IV Total 2000 ml Output Urine Total 2650 ml # Bowel Movements 3 Respiratory: Clear to Auscultation Result Diagram: 08/29/18 0530 08/29/18 0530 Item Value Date Time Prothromb Time International Ratio 2.11 08/29/18 0530 Item Value Date Time Blood Culture - Final Resulted 08/27/18 1603 Blood Peripheral Draw Blood Culture - Final Resulted 08/27/18 1539 Blood Peripheral Draw Imaging Renal US. Assessment and Plan Problems: (1) UTI (urinary tract infection) Status: Acute Assessment & Plan: Her urine culture is growing a gram negative conner, sensitivities are still pending. She is on empiric treatment with ceftriaxone. (2) Sepsis Status: Acute Assessment & Plan: She did have an elevated WBC and fever. Her blood cultures from 08/27 are positive for gram negative rods. A culture from this admission is positive (1 of 2) for a gram positive cocci, but this is suspected to be a contaminant. She is improving of the cefepime. (3) BV (bacterial vaginosis) Status: Acute Assessment & Plan: She was found to have clue cells from a wet prep. She was started on Flagyl in the emergency department 08/27. (4) Hypothyroidism Status: Chronic Assessment & Plan: She is on chronic treatment with Levothyroxine. (5) Paroxysmal atrial fibrillation Status: Chronic Assessment & Plan: She is on chronic treatment with Warfarin. (6) Asthma Status: Chronic Assessment & Plan: She is on Breo and albuterol inhalers. (7) HTN (hypertension) Status: Chronic Assessment & Plan: She is on chronic treatment with Lisinopril and Lasix. These have been started with hold parameters. (8) Type 2 diabetes mellitus Status: Chronic Assessment & Plan: She is on chronic treatment with Metformin. She reports having little appetite. We have held the Metformin. She is on sliding scale level #2. (9) CKD (chronic kidney disease) stage 3, GFR 30-59 ml/min Status: Chronic (10) Abnormal chest x-ray Assessment & Plan: Radiology did interpret her x-ray as an infiltrate, but she does not have any symptoms consistent with pneumonia. Exam Sepsis Risk: Sepsis Risk Problem Qualifiers (1) UTI (urinary tract infection): Urinary tract infection type: acute cystitis Hematuria presence: without hematuria Qualified Codes: N30.00 - Acute cystitis without hematuria (2) Sepsis: Sepsis type: Escherichia coli Qualified Codes: A41.51 - Sepsis due to Escherichia coli [e. coli] (3) HTN (hypertension): Hypertension type: essential hypertension Qualified Codes: I10 - Essential (primary) hypertension JOAQUINA LARA DO Aug 29, 2018 10:25
[2018-08-29] MEDS: LOPERAMIDE HCL 2 MG CAP PO PRN (10:57)
[2018-08-29] MEDS: CEFEPIME HCL 2 GM VIAL IVP SCH ×2 (10:58→22:17)
[2018-08-29 11:02] VITALS: BP 146/52
[2018-08-29] MEDS: traMADol 50 MG TAB PO PRN (11:08)
[2018-08-29] MEDS: WARFARIN SOD 2.5 MG TAB PO SCH (14:21)
[2018-08-29 14:32] VITALS: BP 148/54
--- NOTE | 2018-08-29 14:32 | Medical Nutrition Therapy ---
Nutrition Anthropometrics Height (Inches): 68.00 Height (Calculated Centimeters: 172.256094 Weight (Pounds): 225 Weight (Calculated Kilograms): 102.058 BMI: 34.2 Teddy Nutrition Score: Adequate Teddy Nutrition Risk Score: 16 Dietary Referral Nutrition Risk Factors: Nutrition Risk Comment: Physical Findings Physical Appearance: Obese BMI 30-39 Skin Appearance Skin Appearance: Edema Edema Location Modifier: Edema Location: Type of Edema: Degree of Edema: Gastrointestinal Symptoms GI Symtoms: Diarrhea Tube Present: Bowel Sounds: Recent Bowel Pattern: Diarrhea Stool Characteristics: Loose Nutritional Diagnosis Nutritional Risk Acuity 2: Chronic Renal Failure, Sepsis Past Medical History: Hx of HTN, Asthma, hypothyroid, paroxysmal A-fib, anticoagulated (warfarin), T2DM, CKD-3. Nutritional Acuity: 2-Moderate Nutrition Diagnosis: Decreased Nutrient Needs Nutrition Etiology: Physiological Causes Nutrition Problem/Etiology/Sym: Decreased protein needs r/t physiological causes AEB Chronic renal failure- BUN 19, Creatinine 1.5. Energy Requirement: 1785 (Terry-Alberta adj for obesity * 1.3) Protein Requirement: 80 (.8g/kg) Fluid Requirement: 2040 (20ml/kg) Diet Type: Diet as Tolerated JENN/REG Nutrition Intervention: Encourage intake, Change diet Drug: Warfarin Drug/Nutrition Recommendations: No High Vitamin K Foods Do Not Serve Any of the Follow: Broccoli, Brussel Sprouts, Spinach, [place] Lettuce, Cranberry Juice Nutrition Monitoring & Eval Nutrition Goals: Eat 75-100% Meal, Drink > 1500 cc/day RD Patient Assessment Time: [address] Assessment Type: RD Assessment Patient Nutrition Acuity: 2-Moderate Follow Up Date: Aug 31, 2018 Nutritional Comment: 08/29 Pt admitted for sepsis and UTI. Hx of HTN, Asthma, hypothyroid, paroxysmal A-fib, anticoagulated (warfarin), T2DM, CKD-3. Pt reports having little appetite, taken off Metformin and using sliding scale insulin. Pt is T2DM, recommend Diabetic diet. Pt did consume 100% of dinner on 08/28. Pt is Class 2 Obesity with BMI of 34.2. Decreased levels of RBC at 3.06, Hgb at 9.9, Hct 29.9, K+ at 3, Alb 3.3. Elevated levels of chloride 110, BUN 19, Creatinine at 1.5 (down from 1.8). Will follow labs and intake. TB YANIRA BECERRIL Aug 29, 2018 09:01
[2018-08-29 19:53] VITALS: BP 145/62
[2018-08-29] MEDS: ATORVASTATIN 40 MG TAB PO SCH (20:15)
[2018-08-29 22:14] VITALS: BP 148/58
[2018-08-30 02:16] VITALS: BP 166/62
[2018-08-30] MEDS: traMADol 50 MG TAB PO PRN ×2 (02:32→16:50)
[2018-08-30] MEDS: LOPERAMIDE HCL 2 MG CAP PO PRN ×2 (02:32→19:34)
[2018-08-30 05:34] LABS: PLATELET COUNT, AUTOMATED 148 K/uL (150-450)
[2018-08-30] MEDS: LEVOTHYROXINE SOD 0.112 MG TAB PO SCH (05:35)
[2018-08-30 05:48] LABS: INR 2.36
[2018-08-30] MEDS: FLUTICASONE/VILANTEROL 1 EACH INHALER INH SCH (06:04)
[2018-08-30] MEDS ORDERED: KCL (*) 20 MEQ/100 ML PREMIX 100 ML IV ONE ×2 (06:25)
[2018-08-30 06:46] VITALS: BP 147/59
[2018-08-30] MEDS ORDERED: INFLUENZA VIRUS VAC 0.5ML SYR IM ONLY ONE (09:00)
[2018-08-30] MEDS: ASPIRIN 81 MG CHEW PO SCH (10:26)
[2018-08-30] MEDS: DILTIAZEM CD 120 MG CAPCR PO SCH (10:26)
[2018-08-30] MEDS: CALCIUM CARBONATE 600 MG TAB PO SCH ×2 (10:27→21:10)
[2018-08-30] MEDS: CETIRIZINE HCL 10 MG TAB PO SCH (10:27)
[2018-08-30] MEDS: FLUTICASONE PROP 0.05% 16 GM ENA SCH ×2 (10:27→21:11)
[2018-08-30] MEDS: PANTOPRAZOLE SOD 40 MG TABEC PO SCH (10:27)
[2018-08-30] MEDS: ALLOPURINOL 300 MG TAB PO SCH (10:31)
[2018-08-30] MEDS: POTASSIUM CHL 20 MEQ TABCR PO SCH ×2 (10:31→16:46)
[2018-08-30 11:14] VITALS: BP 155/58
[2018-08-30] MEDS: cefTRIAXone 2 GM VIAL IVP SCH (11:37)
[2018-08-30] MEDS ORDERED: WARFARIN SOD 7.5 MG TAB PO SCH (13:00)
[2018-08-30] MEDS: NS(*) 0.9% 1000 ML BAG 1,000 ML IV PRN (13:08)
[2018-08-30 14:41] VITALS: BP 156/66
--- NOTE | 2018-08-30 15:21 | Hospitalist Progress Note ---
Subjective Progress Notes Subjective 67F admitted secondary to sepsis, UTI and GNR bacteremia. JOHNATHON overnight, improving. Continue IV Abx. Patient Complains of: Neurological: No: Confusion Respiratory: No: Cough Gastrointestinal: No Nausea, No Vomiting Physical Exam Vital Signs Date Time Temp Pulse Resp B/P (MAP) Pulse Ox O2 Delivery O2 Flow Rate FiO2 08/30/18 14:41 99.9 65 24 156/66 (96) 97 Nasal Cannula 2.0 Intake and Output 08/30/18 06:58 Intake Total 0 ml Output Total 450 ml Balance -450 ml Intake Oral 0 ml Output Urine Total 450 ml # Voids 4 # Bowel Movements 4 General Appearance: Alert, Awake, No Acute Distress Neuro: No Gross deficits Eyes: PERRLA ENT: Normal Cardiovascular: Normal Rhythm & Peripheral Pulses Respiratory: Clear to Auscultation GI: Soft and Non-Tender Musculoskeletal: No Weakness/Pain Extremities: Soft and Non Tender, Warm, Pulses, Perfused Integumentary: Skin Intact without Lesion / Mass Psych: Alert & Oriented X3 Result Diagram: 08/30/1851108/30/18511 Assessment and Plan Problems: (1) UTI (urinary tract infection) Status: Acute Assessment & Plan: Her urine culture is mckeon sensitive E coli. Continue ce ftriaxone. (2) Sepsis Status: Resolved Assessment & Plan: She did have an elevated WBC and fever. Her blood cultures from 08/27 are positive for E coli. A culture from this admission is positive (1 of 2) for a gram positive cocci, but this is suspected to be a contaminant. She is improving with current antibiotic regimen. (3) BV (bacterial vaginosis) Status: Acute Assessment & Plan: She was found to have clue cells from a wet prep. She was started on Flagyl in the emergency department 08/27. (4) Hypothyroidism Status: Chronic Assessment & Plan: She is on chronic treatment with Levothyroxine. (5) Paroxysmal atrial fibrillation Status: Chronic Assessment & Plan: She is on chronic treatment with Warfarin. (6) Asthma Status: Chronic Assessment & Plan: She is on Breo and albuterol inhalers. (7) HTN (hypertension) Status: Chronic Assessment & Plan: She is on chronic treatment with Lisinopril and Lasix. These have been started with hold parameters. (8) Type 2 diabetes mellitus Status: Chronic Assessment & Plan: She is on chronic treatment with Metformin. She reports having little appetite. We have held the Metformin. She is on sliding scale level #2. (9) CKD (chronic kidney disease) stage 3, GFR 30-59 ml/min Status: Chronic (10) Abnormal chest x-ray Assessment & Plan: Radiology did interpret her x-ray as an infiltrate, but she does not have any symptoms consistent with pneumonia. Exam Sepsis Risk: No Definite Risk Problem Qualifiers (1) UTI (urinary tract infection): Urinary tract infection type: acute cystitis Hematuria presence: without hematuria Qualified Codes: N30.00 - Acute cystitis without hematuria (2) Sepsis: Sepsis type: Escherichia coli Qualified Codes: A41.51 - Sepsis due to Escherichia coli [e. coli] (3) HTN (hypertension): Hypertension type: essential hypertension Qualified Codes: I10 - Essential (primary) hypertension ZAHRA AGOSTO DO Aug 30, 2018 15:21
--- NOTE | 2018-08-30 17:08 | Antimicrobial Stewardship ---
Antimicrobial Time Out Antimicrobial Stewardship MD Service: Hospitalist Indications: UTI Antimicrobial Used CEFTRIAXONE 2G IVP Q24H Start Date: Aug 28, 2018 Culture Results: No (GP COCCI) Eligible for PO Conversion Eligable for PO Conversion: Yes (ONCE AFEBRILE FOR 24 HRS) Reviewed with Provider Reviewed w/ Provider on Rounds: No Comments Comments Patient is on ceftriaxone 2g IV Push daily for a UTI with Gram positive cocci. WBC count has dropped from 12 to 8 and patient is improving clinically. She could be converted to oral therapy after 24 hrs afebrile based on sensitivities. HUBERT BRYANT Aug 30, 2018 17:08
--- NOTE | 2018-08-30 17:26 | Antimicrobial Stewardship ---
Antimicrobial Stewardship Empiricly appropriate: Yes (Blood Cx from ED visit with GNR) Support empiric regimen: Yes Approriate Cultures done: Yes (Blood Cx done 08-27 and 08-28, Urine Cx done ) Gram stain show Microbs: Yes (Blood Cx - GNR, Urine Cx - GNR) Review the antibiotic sensitiv: Yes (08/30- Results of Urine and Blood Cx - e.coli mckeon sensitive) Renal/Hepatic dosing: Yes Appropriate dose for site: Yes Monitored for Toxicities: Yes Clinically stable/improving: Yes IV to PO Opportunity: No Determine cumulative duration: Bacterial Vaginosis - 7 days total, day 3; Blood/Urine 10-14d, day 3 Comment 67 yo F who presented to the ED with fever on 08/27, was diagnosed with bacterial vaginosis, pneumonia. Sent home with flagyl and levofloxacin, blood and urine cultures done. On 08/28, patient returned to the ED with fevers, body aches and generally not feeling well, positive blood cultures. Tmax 103, WBC 11.3 (88% neuts), Scr 1.8, chest xray showed consolidation/infiltrates 08/27: Blood Cx 4/4 bottles growing GNR, e.coli, pansensitive 08/27: Urine Cx growing GNR, e.coli, pansensitive 08/27: Wet prep- clue cells, diagnosis bacterial vaginosis Started Flagyl, levofloxacin on 08/27, upon return to the ED patient was started on the followin/26: Flagyl 500mg BID---> duration 7 days for Bacterial Vaginosis 08/28: Cefepime 2g IV Q8H---> Pt was septic, broad coverage for positive blood cultures 08/30: Switched to Ceftriaxone 2g IV Q24H--> day 3 of therapy, consider 10-14 days of therapy, pt does not have symptoms consistent with pneumonia, will monitor to determine if addition of atypical coverage is necessary. Jazz Baker, PharmD, BCOP JAZZ BAKER Aug 30, 2018 17:26
[2018-08-30 18:43] VITALS: BP 150/68
[2018-08-30] MEDS: METRONIDAZOLE 500 MG TABLET PO SCH (21:10)
[2018-08-30] MEDS: ATORVASTATIN 40 MG TAB PO SCH (21:10)
[2018-08-30 23:04] VITALS: BP 159/61
[2018-08-31] MEDS: NS(*) 0.9% 1000 ML BAG 1,000 ML IV PRN ×2 (02:30→21:03)
[2018-08-31 03:21] VITALS: BP 160/65
[2018-08-31] MEDS: FLUTICASONE/VILANTEROL 1 EACH INHALER INH SCH (05:32)
[2018-08-31] MEDS: LEVOTHYROXINE SOD 0.112 MG TAB PO SCH (05:52)
[2018-08-31] MEDS: traMADol 50 MG TAB PO PRN ×2 (05:53→19:16)
[2018-08-31 06:43] LABS: PLATELET COUNT, AUTOMATED 197 K/uL (150-450)
[2018-08-31 06:51] LABS: INR 2.87
[2018-08-31 07:59] VITALS: BP 156/63
[2018-08-31] MEDS: ASPIRIN 81 MG CHEW PO SCH (08:37)
[2018-08-31] MEDS: ALLOPURINOL 300 MG TAB PO SCH (08:37)
[2018-08-31] MEDS: CETIRIZINE HCL 10 MG TAB PO SCH (08:37)
[2018-08-31] MEDS: PANTOPRAZOLE SOD 40 MG TABEC PO SCH (08:37)
[2018-08-31] MEDS: DILTIAZEM CD 120 MG CAPCR PO SCH (08:37)
[2018-08-31] MEDS: METRONIDAZOLE 500 MG TABLET PO SCH (08:37)
[2018-08-31] MEDS: POTASSIUM CHL 20 MEQ TABCR PO SCH ×2 (08:37→17:14)
[2018-08-31] MEDS: CALCIUM CARBONATE 600 MG TAB PO SCH ×2 (08:37→21:01)
[2018-08-31] MEDS: FLUTICASONE PROP 0.05% 16 GM ENA SCH ×2 (08:44→21:02)
[2018-08-31] MEDS: cefTRIAXone 2 GM VIAL IVP SCH (11:32)
[2018-08-31 12:04] VITALS: BP 164/65
[2018-08-31] MEDS: ACETAMINOPHEN 325 MG TAB PO PRN (13:22)
[2018-08-31] MEDS: WARFARIN SOD 2.5 MG TAB PO SCH (13:22)
--- NOTE | 2018-08-31 13:25 | Hospitalist Progress Note ---
Subjective Progress Notes Subjective She has complaints of nausea and left lower quadrant pain. She also has increase WBC count this morning. She reports the pain to the left lower quadrant is about the same as it has been, but the nausea has increased today. She also has decreased appetite, she states that food "tastes funny", which is likely a side effect of Flagyl. Patient Complains of: Cardiovascular: No: Chest Pain Respiratory: No: Shortness of Breath Physical Exam Vital Signs Date Time Temp Pulse Resp B/P (MAP) Pulse Ox O2 Delivery O2 Flow Rate FiO2 08/31/18 07:59 98.9 63 16 156/63 (94) 97 Nasal Cannula 3.0 Intake and Output 08/31/18 06:58 Intake Total 1389 ml Balance 1389 ml Intake Oral 300 ml IV Total 1089 ml # Voids 10 # Bowel Movements 6 General Appearance: Alert, Awake, No Acute Distress, Afebrile Neuro: No Gross deficits Cardiovascular: Regular Rate and Rhythm Respiratory: No Respiratory Distress, Clear to Auscultation GI: Other (pain to palpation to left lower pelvis region, has normal BM's per pt) : Normal, No CVA Tenderness Extremities: Warm, Perfused; No Edema Psych: Alert & Oriented X3, Appropriate Mood & Affect Result Diagram: 08/31/1862708/31/18627 Assessment and Plan Problems: (1) UTI (urinary tract infection) Status: Acute Assessment & Plan: Her urine culture is mckeon sensitive E coli. Continue ceftriaxone. She has increased WBC count today. We will recheck CBC this afternoon, if WBC still elevated will consider CT of abdomen and pelvis. (2) Sepsis Status: Resolved Assessment & Plan: She did have an elevated WBC and fever. Her blood cultures from 08/27 are positive for E coli. A culture from this admission is positive (1 of 2) for a gram positive cocci, but this is suspected to be a contaminant. She has been improving with current antibiotic regimen. (3) BV (bacterial vaginosis) Status: Acute Assessment & Plan: She was found to have clue cells from a wet prep. She was started on Flagyl in the emergency department 08/27, but will switch her to MetroGel vaginally today since she has increased nausea. She should continue for five days. (4) Hypothyroidism Status: Chronic Assessment & Plan: She is on chronic treatment with Levothyroxine. (5) Paroxysmal atrial fibrillation Status: Chronic Assessment & Plan: She is on chronic treatment with Warfarin. (6) Asthma Status: Chronic Assessment & Plan: She is on Breo and albuterol inhalers. (7) HTN (hypertension) Status: Chronic Assessment & Plan: She is on chronic treatment with Lisinopril and Lasix. These have been started with hold parameters. (8) Type 2 diabetes mellitus Status: Chronic Assessment & Plan: She is on chronic treatment with Metformin. She reports having little appetite. We have held the Metformin. She is on sliding scale level #2. (9) CKD (chronic kidney disease) stage 3, GFR 30-59 ml/min Status: Chronic (10) Abnormal chest x-ray Assessment & Plan: Radiology did interpret her x-ray as an infiltrate, but she does not have any symptoms consistent with pneumonia. Exam Sepsis Risk: No Definite Risk Problem Qualifiers (1) UTI (urinary tract infection): Urinary tract infection type: acute cystitis Hematuria presence: without hematuria Qualified Codes: N30.00 - Acute cystitis without hematuria (2) Sepsis: Sepsis type: Escherichia coli Qualified Codes: A41.51 - Sepsis due to Escherichia coli [e. coli] (3) HTN (hypertension): Hypertension type: essential hypertension Qualified Codes: I10 - Essential (primary) hypertension KT BLOODP Aug 31, 2018 20:25
[2018-08-31 14:39] LABS: PLATELET COUNT, AUTOMATED 213 K/uL (150-450)
--- NOTE | 2018-08-31 16:18 | Medical Nutrition Therapy ---
Nutrition Anthropometrics Height (Inches): 68.00 Height (Calculated Centimeters: 172.451234 Weight (Pounds): 225 Weight (Calculated Kilograms): 102.058 BMI: 34.2 Teddy Nutrition Score: Adequate Teddy Nutrition Risk Score: 17 Dietary Referral Nutrition Risk Factors: Nutrition Risk Comment: Physical Findings Physical Appearance: Obese BMI 30-39 Skin Appearance Skin Appearance: Edema Edema Location Modifier: Both Edema Location: Lower Extremity Type of Edema: Degree of Edema: 1+ Gastrointestinal Symptoms GI Symtoms: Diarrhea Tube Present: Bowel Sounds: Recent Bowel Pattern: Diarrhea Stool Characteristics: Loose Nutritional Diagnosis Nutritional Risk Acuity 2: Chronic Renal Failure, Sepsis Past Medical History: Hx of HTN, Asthma, hypothyroid, paroxysmal A-fib, anticoagulated (warfarin), T2DM, CKD-3. Nutritional Acuity: 2-Moderate Nutrition Diagnosis: Increased Nutrient Needs Nutrition Etiology: Physiological Causes Nutrition Problem/Etiology/Sym: Increased nutrient needs r/t physiological causes AEB alb of 2.5, total protein of 4.9, Ca 7.2. Energy Requirement: 1785 (Terry-[place] adj for obesity * 1.3) Protein Requirement: 80 (.8g/kg) Fluid Requirement: 2040 (20ml/kg) Diet Type: Diet as Tolerated JENN/REG Nutrition Intervention: Encourage intake, Between meal supplement, Change diet Drug: Warfarin Drug/Nutrition Recommendations: No High Vitamin K Foods Do Not Serve Any of the Follow: Broccoli, Brussel Sprouts, Spinach, [place] Lettuce, Cranberry Juice Diet Comment To RSA: PROVIDE NUTR SUPPLEMENT Nutrition Monitoring & Eval Nutrition Goals: Eat 50-100% Meal, Drink > 1500 cc/day Nutrition Follow-Up: Poor Intake RD Patient Assessment Time: [address] Assessment Type: RD Re-Assessment Patient Nutrition Acuity: 2-Moderate Follow Up Date: Sep 03, 2018 Nutritional Comment: 08/29 Pt admitted for sepsis and UTI. Hx of HTN, Asthma, hypothyroid, paroxysmal A-fib, anticoagulated (warfarin), T2DM, CKD-3. Pt reports having little appetite, taken off Metformin and using sliding scale insulin. Pt is T2DM, recommend Diabetic diet. Pt did consume 100% of dinner on 08/28. Pt is Class 2 Obesity with BMI of 34.2. Decreased levels of RBC at 3.06, Hgb at 9.9, Hct 29.9, K+ at 3, Alb 3.3. Elevated levels of chloride 110, BUN 19, Creatinine at 1.5 (down from 1.8). Will follow labs and intake. SONJA 08/31 Pt on JENN. Pt has little to no appetite with increased nausea, reported to nurse that the food tastes funny. Pt stated that solid foods have been tasting too salty, I informed pt that the cafe does have lower sodium options. I also encouraged pt to try to get a Boost down this evening, and she said she would. Low levels of alb at 2.5, total protein at 4.9, Ca at 7.2. Elevated Creatinine at 1.1 and Chloride at 113. Will encourage intake and provide nutr supplement. YANIRA HAMILTON Aug 31, 2018 14:16
[2018-08-31 16:53] VITALS: BP 156/74
[2018-08-31] MEDS ORDERED: IOPAMIDOL 76% 75 ML INFUS BTL 75 ML ONE (17:25)
--- NOTE | 2018-08-31 18:27 | RADIOLOGY IMAGING REPORT ---
FACILITY: [facility] PATIENT NAME: Karen Black : 1950 MR: [id number] V: [id number] EXAM DATE: ORDERING PHYSICIAN: KT BLOOD TECHNOLOGIST: Location: [facility] Patient: Karen lBack : 1950 Visit/Account:[id number] Date of Sevice: 08/31/2018 EXAMINATION: CT abdomen and pelvis with IV contrast HISTORY: Left lower quadrant pain, nausea, UTI TECHNIQUE: Axial CT images of the abdomen and pelvis were obtained with IV contrast, with coronal a nd sagittal 2D reconstructed images. One of the following dose optimization techniques was utilized in the performance of this exam: Autom ated exposure control; adjustment of the mA and/or kV according to the patient's size; or use of an i terative reconstruction technique. Specific details can be referenced in the facility's radiology C T exam operational policy. Contrast: 75 mL of IV Isovue-370. COMPARISON: Renal ultrasound 08/28/2018. FINDINGS: Liver: Fatty infiltration of the liver. No focal liver lesion. The hepatic veins and portal veins ar e patent. Gallbladder and bile ducts: Negative. Spleen: Negative. Pancreas: Negative. Adrenal glands: Negative. Kidneys: The left kidney appears mildly enlarged and edematous with asymmetric perinephric stranding surrounding the left kidney. There is slight decreased enhancement of the left kidney relative to th e contralateral right kidney. CT findings may be compatible with pyelonephritis. No hydronephrosis or urinary calculi. The right kidney enhances normally with normal size and morphology of the right kid reg. Bowel and peritoneum: The small bowel and colon are normal in caliber. No localized bowel wall thick ening. There are a few scattered colonic diverticula, without evidence of diverticulitis. Small amoun t of free fluid in the pelvis. No free intraperitoneal air. Small hiatal hernia. Pelvic structures: Vaginal pessary in place. There is a small amount of intraluminal air within t he urinary bladder. Lymph node assessment: Negative. Vessels: Negative. Musculoskeletal: No acute osseous findings. Left hip arthroplasty. Body wall: Negative. Lung bases: Small bilateral layering pleural effusions with adjacent atelectasis in the lung bases. IMPRESSION: 1. The left kidney appears mildly enlarged and edematous with some slight decreased parenchymal enhan cement and asymmetric perinephric stranding surrounding the left kidney. CT appearance may be compati ble with pyelonephritis. 2. No urinary calculi or hydronephrosis. 3. Small amount of air in the bladder. This could be due to recent urinary catheterization or urinary infection 4. Trace amount of free fluid in the pelvis. 5. Small bilateral pleural effusions with adjacent atelectasis in the lung bases. Report Dictated By: Louie Gaytan MD at 08/31/2018 6:14 PM Report E-Signed By: Louie Gaytan MD at 08/31/2018 6:23 PM [id number]
[2018-08-31 18:39] VITALS: BP 162/62
[2018-08-31] MEDS: LOPERAMIDE HCL 2 MG CAP PO PRN ×2 (19:57→22:17)
[2018-08-31] MEDS: ATORVASTATIN 40 MG TAB PO SCH (21:01)
[2018-08-31] MEDS: METRONIDAZOLE PV SCH (21:02)
[2018-09-01 04:30] VITALS: BP 139/62
[2018-09-01] MEDS: LOPERAMIDE HCL 2 MG CAP PO PRN (04:37)
[2018-09-01] MEDS: ACETAMINOPHEN 325 MG TAB PO PRN ×2 (04:43→13:10)
[2018-09-01] MEDS: FLUTICASONE/VILANTEROL 1 EACH INHALER INH SCH (05:27)
[2018-09-01] MEDS: LEVOTHYROXINE SOD 0.112 MG TAB PO SCH (06:16)
[2018-09-01 06:50] LABS: PLATELET COUNT, AUTOMATED 252 K/uL (150-450)
[2018-09-01 06:57] LABS: INR 3.64
[2018-09-01 07:37] VITALS: BP 133/62
[2018-09-01] MEDS: POTASSIUM CHL 20 MEQ TABCR PO SCH ×2 (08:44→17:12)
[2018-09-01] MEDS: CALCIUM CARBONATE 600 MG TAB PO SCH ×2 (09:40→20:39)
[2018-09-01] MEDS: CETIRIZINE HCL 10 MG TAB PO SCH (09:40)
[2018-09-01] MEDS: FLUTICASONE PROP 0.05% 16 GM ENA SCH ×2 (09:40→20:39)
[2018-09-01] MEDS: ASPIRIN 81 MG CHEW PO SCH (09:40)
[2018-09-01] MEDS: ALLOPURINOL 300 MG TAB PO SCH (09:40)
[2018-09-01] MEDS: DILTIAZEM CD 120 MG CAPCR PO SCH (09:40)
[2018-09-01] MEDS: PANTOPRAZOLE SOD 40 MG TABEC PO SCH (09:40)
[2018-09-01] MEDS: NS(*) 0.9% 1000 ML BAG 1,000 ML IV PRN (09:55)
[2018-09-01] MEDS ORDERED: LEVOFLOXACIN/D5W 750 MG/150 ML 150 ML IVPB SCH (10:00)
--- NOTE | 2018-09-01 11:10 | Hospitalist Progress Note ---
Subjective Progress Notes Subjective She believes her abdominal pain has lessened this morning. She denies any more nausea. Patient Complains of: Cardiovascular: No: Chest Pain Respiratory: No: Shortness of Breath Physical Exam Vital Signs Date Time Temp Pulse Resp B/P (MAP) Pulse Ox O2 Delivery O2 Flow Rate FiO2 09/01/18 08:17 97 Nasal Cannula 1.5 09/01/18 07:37 97.9 64 133/62 (85) 09/01/18 04:30 16 Intake and Output 09/01/18 06:58 Intake Total 1702 ml Balance 1702 ml Intake Oral 722 ml IV Total 980 ml # Voids 7 # Bowel Movements 7 General Appearance: Alert, Awake, No Acute Distress, Afebrile Neuro: No Gross deficits Cardiovascular: Regular Rate and Rhythm Respiratory: No Respiratory Distress, Clear to Auscultation GI: Soft and Non-Tender Psych: Alert & Oriented X3, Appropriate Mood & Affect Result Diagram: 09/01/18 0640 09/01/18 0640 Assessment and Plan Problems: (1) UTI (urinary tract infection) Status: Acute Assessment & Plan: She presented with dysuria and her urine culture was mckeon sensitive E coli. She was on ceftriaxone, but she had increasing liver function and WBC count. She was switched to Levaquin 09/01. (2) Pyelonephritis Status: Acute Assessment & Plan: She had increasing WBC count, nausea, and left flank pain. CT Abdomen and Pelvis performed confirms pyelonephritis. She is on Levaquin. (3) Sepsis Status: Resolved Assessment & Plan: She did have an elevated WBC and fever. Her blood cultures from 08/27 are positive for E coli. A culture from this admission is positive (1 of 2) for a gram positive cocci, but this is suspected to be a contaminant. (4) BV (bacterial vaginosis) Status: Acute Assessment & Plan: She was found to have clue cells from a wet prep. She was started on Flagyl in the emergency department 08/27, but will switch her to MetroGel vaginally 08/31 since she has increased nausea. She should continue for five days. (5) Hypothyroidism Status: Chronic Assessment & Plan: She is on chronic treatment with Levothyroxine. (6) Paroxysmal atrial fibrillation Status: Chronic Assessment & Plan: She is on chronic treatment with Warfarin. (7) Asthma Status: Chronic Assessment & Plan: She is on Breo and albuterol inhalers. (8) HTN (hypertension) Status: Chronic Assessment & Plan: She is on chronic treatment with Lisinopril and Lasix. These have been started with hold parameters. (9) Type 2 diabetes mellitus Status: Chronic Assessment & Plan: She is on chronic treatment with Metformin. She reports having little appetite. We have held the Metformin. She is on sliding scale level #2. (10) CKD (chronic kidney disease) stage 3, GFR 30-59 ml/min Status: Chronic (11) Abnormal chest x-ray Assessment & Plan: Radiology did interpret her x-ray as an infiltrate, but she does not have any symptoms consistent with pneumonia. Exam Sepsis Risk: No Definite Risk Problem Qualifiers (1) UTI (urinary tract infection): Urinary tract infection type: acute cystitis Hematuria presence: without hematuria Qualified Codes: N30.00 - Acute cystitis without hematuria (2) Sepsis: Sepsis type: Escherichia coli Qualified Codes: A41.51 - Sepsis due to Escherichia coli [e. coli] (3) HTN (hypertension): Hypertension type: essential hypertension Qualified Codes: I10 - Essential (primary) hypertension KT BLOODP Sep 01, 2018 11:10
[2018-09-01 13:04] VITALS: BP 156/64
[2018-09-01] MEDS: ALBUTEROL 8 GM INHALER INH PRN ×2 (13:09→17:54)
[2018-09-01 15:24] VITALS: BP 148/50
[2018-09-01 19:25] VITALS: BP 146/47
[2018-09-01] MEDS: METRONIDAZOLE PV SCH (20:39)
[2018-09-01] MEDS: ATORVASTATIN 40 MG TAB PO SCH (20:39)
[2018-09-01 22:44] VITALS: BP 161/62
[2018-09-01] MEDS: traMADol 50 MG TAB PO PRN (22:51)
[2018-09-02 04:29] VITALS: BP 148/55
[2018-09-02] MEDS: FLUTICASONE/VILANTEROL 1 EACH INHALER INH SCH (05:44)
[2018-09-02 05:52] LABS: PLATELET COUNT, AUTOMATED 294 K/uL (150-450)
[2018-09-02 06:02] LABS: INR 2.98
[2018-09-02 07:42] VITALS: BP 158/66
[2018-09-02] MEDS: POTASSIUM CHL 20 MEQ TABCR PO SCH ×2 (08:00→16:40)
[2018-09-02] MEDS: CETIRIZINE HCL 10 MG TAB PO SCH (10:08)
[2018-09-02] MEDS: CALCIUM CARBONATE 600 MG TAB PO SCH ×2 (10:08→20:23)
[2018-09-02] MEDS: LEVOFLOXACIN 750 MG TAB PO SCH (10:08)
[2018-09-02] MEDS: ALLOPURINOL 300 MG TAB PO SCH (10:09)
[2018-09-02] MEDS: PANTOPRAZOLE SOD 40 MG TABEC PO SCH (10:09)
[2018-09-02] MEDS: ACETAMINOPHEN 325 MG TAB PO PRN ×2 (10:09→20:23)
[2018-09-02] MEDS: ASPIRIN 81 MG CHEW PO SCH (10:09)
[2018-09-02] MEDS: FLUTICASONE PROP 0.05% 16 GM ENA SCH ×2 (10:10→20:23)
[2018-09-02] MEDS: DILTIAZEM CD 120 MG CAPCR PO SCH (10:17)
--- NOTE | 2018-09-02 10:54 | Hospitalist Progress Note ---
Subjective Progress Notes Subjective She reports feeling improved. No fevers. Physical Exam Vital Signs Date Time Temp Pulse Resp B/P (MAP) Pulse Ox O2 Delivery O2 Flow Rate FiO2 09/02/18 07:42 98.0 69 18 158/66 (96) 91 Nasal Cannula 2.0 Intake and Output 09/02/18 06:58 Intake Total 2375 ml Balance 2375 ml Intake Oral 1250 ml IV Total 1125 ml # Voids 9 # Bowel Movements 7 General Appearance: Alert, Awake Cardiovascular: Regular Rate and Rhythm Respiratory: Clear to Auscultation Result Diagram: 09/02/1852009/02/18520 Assessment and Plan Problems: (1) UTI (urinary tract infection) Status: Acute Assessment & Plan: She presented with dysuria and her urine culture grew pansensitive E. coli. She was on IV ceftriaxone, but she had increasing liver function and WBC count. She was switched to Levaquin 09/01. (2) Pyelonephritis Status: Acute Assessment & Plan: She had increasing WBC count, nausea, and left flank pain. CT Abdomen and Pelvis confirmed pyelonephritis. She is on Levaquin. (3) Sepsis Status: Resolved Assessment & Plan: She did have an elevated WBC and fever. Her blood cultures from 08/27/18 are positive for E. coli. One of two blood cultures from this admission is positive for a gram positive cocci, but this is suspected to be a contaminant. She has been afebrile for more than 48hours. She is on Levaquin. (4) BV (bacterial vaginosis) Status: Acute Assessment & Plan: She was found to have clue cells from a wet prep. She was started on oral Flagyl in the emergency department 08/27, but was switched to MetroGel intravaginal 08/31. She will continue for five days. (5) Hypothyroidism Status: Chronic Assessment & Plan: She is on chronic treatment with Levothyroxine. (6) Paroxysmal atrial fibrillation Status: Chronic Assessment & Plan: She is on chronic treatment with Warfarin. INR was elevated most likely due to antibiotics. We have her on reduced dose of warfarin now (2.5mg daily). Previously on 5mg 6 days a week and 2.5mg on Tuesday only. (7) Asthma Status: Chronic Assessment & Plan: She is on Breo and albuterol inhalers. (8) HTN (hypertension) Status: Chronic Assessment & Plan: She is on chronic treatment with Lisinopril and Lasix. These have been started with hold parameters. (9) Type 2 diabetes mellitus Status: Chronic Assessment & Plan: She is on chronic treatment with Metformin. She reports having little appetite. We have held the Metformin. She is on sliding scale level #2. (10) CKD (chronic kidney disease) stage 3, GFR 30-59 ml/min Status: Chronic (11) Abnormal chest x-ray Assessment & Plan: Radiology did interpret her x-ray as an infiltrate, but she does not have any symptoms consistent with pneumonia. The [facility] would provide coverage. She should have follow up CXR in 4-6 weeks. Exam Sepsis Risk: No Definite Risk Problem Qualifiers (1) UTI (urinary tract infection): Urinary tract infection type: acute cystitis Hematuria presence: without hematuria Qualified Codes: N30.00 - Acute cystitis without hematuria (2) Sepsis: Sepsis type: Escherichia coli Qualified Codes: A41.51 - Sepsis due to Escherichia coli [e. coli] (3) HTN (hypertension): Hypertension type: essential hypertension Qualified Codes: I10 - Essential (primary) hypertension JERICHO CHATTERJEE MD Sep 02, 2018 10:54
[2018-09-02 12:11] VITALS: BP 164/62
[2018-09-02] MEDS: WARFARIN SOD 2.5 MG TAB PO SCH (12:57)
[2018-09-02 16:24] VITALS: BP 155/63
[2018-09-02 18:48] VITALS: BP 161/61
[2018-09-02] MEDS: ATORVASTATIN 40 MG TAB PO SCH (20:23)
[2018-09-02] MEDS: METRONIDAZOLE PV SCH (20:23)
[2018-09-02 22:58] VITALS: BP 178/65
[2018-09-03 03:21] VITALS: BP 182/64
[2018-09-03] MEDS: FLUTICASONE/VILANTEROL 1 EACH INHALER INH SCH (05:30)
[2018-09-03 06:45] LABS: PLATELET COUNT, AUTOMATED 350 K/uL (150-450)
[2018-09-03 07:01] LABS: INR 2.56
[2018-09-03 07:02] VITALS: BP 162/72
[2018-09-03] MEDS: CETIRIZINE HCL 10 MG TAB PO SCH (08:22)
[2018-09-03] MEDS: FLUTICASONE PROP 0.05% 16 GM ENA SCH ×2 (08:22→20:30)
[2018-09-03] MEDS: CALCIUM CARBONATE 600 MG TAB PO SCH ×2 (08:22→20:22)
[2018-09-03] MEDS: POTASSIUM CHL 20 MEQ TABCR PO SCH ×2 (08:23→17:16)
[2018-09-03] MEDS: ALLOPURINOL 300 MG TAB PO SCH (08:23)
[2018-09-03] MEDS: DILTIAZEM CD 120 MG CAPCR PO SCH (08:23)
[2018-09-03] MEDS: PANTOPRAZOLE SOD 40 MG TABEC PO SCH (08:23)
[2018-09-03] MEDS: ASPIRIN 81 MG CHEW PO SCH (08:24)
--- NOTE | 2018-09-03 10:23 | Hospitalist Progress Note ---
Subjective Progress Notes Subjective 67F admitted for sepsis. JOHNATHON overnight, on PO Abx. She does not feel comfortable going home without someone to stay with her for first 24hours. Plan to d/c tomorrow unless something changes. Patient Complains of: Gastrointestinal: No Nausea, No Vomiting Physical Exam Vital Signs Date Time Temp Pulse Resp B/P (MAP) Pulse Ox O2 Delivery O2 Flow Rate FiO2 09/03/18 07:39 98 Nasal Cannula 2.0 09/03/18 07:02 98.7 56 19 162/72 (102) Intake and Output 09/03/18 06:58 Intake Total 1180 ml Balance 1180 ml Intake Oral 1180 ml # Voids 9 # Bowel Movements 6 General Appearance: Alert, Awake, No Acute Distress Neuro: No Gross deficits Eyes: PERRLA ENT: Normal Cardiovascular: Normal Rhythm & Peripheral Pulses Respiratory: No Respiratory Distress GI: Soft and Non-Tender Musculoskeletal: No Weakness/Pain Integumentary: Skin Intact without Lesion / Mass Psych: Alert & Oriented X3 Result Diagram: 09/03/18 0603 09/03/18 0603 Assessment and Plan Problems: (1) UTI (urinary tract infection) Status: Acute Assessment & Plan: She presented with dysuria and her urine culture grew panse nsitive E. coli. She was on IV ceftriaxone, but she had increasing liver function and WBC count. She was switched to Levaquin 09/01. (2) Pyelonephritis Status: Acute Assessment & Plan: She had increasing WBC count, nausea, and left flank pain. CT Abdomen and Pelvis confirmed pyelonephritis. She is on Levaquin. (3) Sepsis Status: Resolved Assessment & Plan: She did have an elevated WBC and fever. Her blood cultures from 08/27/18 are positive for E. coli. One of two blood cultures from this admission grew staph species contaminants. She has been afebrile for more than 48hours. She is on Levaquin. (4) BV (bacterial vaginosis) Status: Acute Assessment & Plan: She was found to have clue cells from a wet prep. She was started on oral Flagyl in the emergency department 08/27, but was switched to MetroGel intravaginal 08/31. She will continue for five days. (5) Hypothyroidism Status: Chronic Assessment & Plan: She is on chronic treatment with Levothyroxine. (6) Paroxysmal atrial fibrillation Status: Chronic Assessment & Plan: She is on chronic treatment with Warfarin. INR was elevated most likely due to antibiotics. We have her on reduced dose of warfarin now (2.5mg daily). Previously on 5mg 6 days a week and 2.5mg on Tuesday only. (7) Asthma Status: Chronic Assessment & Plan: She is on Breo and albuterol inhalers. (8) HTN (hypertension) Status: Chronic Assessment & Plan: She is on chronic treatment with Lisinopril and Lasix. These have been started with hold parameters. (9) Type 2 diabetes mellitus Status: Chronic Assessment & Plan: She is on chronic treatment with Metformin. She reports having little appetite. We have held the Metformin. She is on sliding scale level #2. (10) CKD (chronic kidney disease) stage 3, GFR 30-59 ml/min Status: Chronic (11) Abnormal chest x-ray Assessment & Plan: Radiology did interpret her x-ray as an infiltrate, but she does not have any symptoms consistent with pneumonia. The [facility] would provide coverage. She should have follow up CXR in 4-6 weeks. Exam Sepsis Risk: No Definite Risk Problem Qualifiers (1) UTI (urinary tract infection): Urinary tract infection type: acute cystitis Hematuria presence: without hematuria Qualified Codes: N30.00 - Acute cystitis without hematuria (2) Sepsis: Sepsis type: Escherichia coli Qualified Codes: A41.51 - Sepsis due to Escherichia coli [e. coli] (3) HTN (hypertension): Hypertension type: essential hypertension Qualified Codes: I10 - Essential (primary) hypertension ZAHRA AGOSTO DO Sep 03, 2018 10:22
[2018-09-03] MEDS: LEVOFLOXACIN 750 MG TAB PO SCH (10:25)
[2018-09-03] MEDS: FUROSEMIDE 20 MG TAB PO SCH (10:25)
[2018-09-03] MEDS: LISINOPRIL 20 MG TAB PO SCH (10:25)
--- NOTE | 2018-09-03 11:53 | Medical Nutrition Therapy ---
Nutrition Anthropometrics Height (Inches): 68.00 Height (Calculated Centimeters: 172.695156 Weight (Pounds): 225 Weight (Calculated Kilograms): 102.058 BMI: 34.2 Teddy Nutrition Score: Adequate Teddy Nutrition Risk Score: 17 Dietary Referral Nutrition Risk Factors: Nutrition Risk Comment: Physical Findings Physical Appearance: Obese BMI 30-39 Skin Appearance Skin Appearance: Edema Edema Location Modifier: Both Edema Location: Lower Extremity Type of Edema: Degree of Edema: 1+ Gastrointestinal Symptoms GI Symtoms: Appetite Changes, Diarrhea, Hemorrhoids Tube Present: Bowel Sounds: Recent Bowel Pattern: Diarrhea Stool Characteristics: Loose Nutritional Diagnosis Nutritional Risk Acuity 2: Chronic Renal Failure, Sepsis Past Medical History: Hx of HTN, Asthma, hypothyroid, paroxysmal A-fib, anticoagulated (warfarin), T2DM, CKD-3. Nutritional Acuity: 2-Moderate Nutrition Diagnosis: Increased Nutrient Needs Nutrition Etiology: Physiological Causes Nutrition Problem/Etiology/Sym: Increased nutrient needs r/t physiological causes AEB alb of 2.5, total protein of 4.9, Ca 7.2. Energy Requirement: 1785 ([place]erry-[place] adj for obesity * 1.3) Protein Requirement: 80 (.8g/kg) Fluid Requirement: 2040 (20ml/kg) Diet Type: Diet as Tolerated JENN/REG Nutrition Intervention: Encourage intake, Between meal supplement, Change diet Drug: Warfarin Drug/Nutrition Recommendations: No High Vitamin K Foods Do Not Serve Any of the Follow: Broccoli, Brussel Sprouts, Spinach, [place] Lettuce, Cranberry Juice Diet Comment To RSA: PROVIDE NUTR SUPPLEMENT Nutrition Monitoring & Eval Nutrition Follow-Up: Fair Intake RD Patient Assessment Time: [address] Assessment Type: RD Re-Assessment Patient Nutrition Acuity: 2-Moderate Follow Up Date: Sep 06, 2018 Nutritional Comment: 08/29 Pt admitted for sepsis and UTI. Hx of HTN, Asthma, hypothyroid, paroxysmal A-fib, anticoagulated (warfarin), T2DM, CKD-3. Pt reports having little appetite, taken off Metformin and using sliding scale insulin. Pt is T2DM, recommend Diabetic diet. Pt did consume 100% of dinner on 08/28. Pt is Class 2 Obesity with BMI of 34.2. Decreased levels of RBC at 3.06, Hgb at 9.9, Hct 29.9, K+ at 3, Alb 3.3. Elevated levels of chloride 110, BUN 19, Creatinine at 1.5 (down from 1.8). Will follow labs and intake. TB 08/31 Pt on JENN. Pt has little to no appetite with increased nausea, reported to nurse that the food tastes funny. Pt stated that solid foods have been tasting too salty, I informed pt that the cafe does have lower sodium options. I also encouraged pt to try to get a Boost down this evening, and she said she would. Low levels of alb at 2.5, total protein at 4.9, Ca at 7.2. Elevated Creatinine at 1.1 and Chloride at 113. Will encourage intake and provide nutr supplement. TB 09/03/18 Pt is improving and is soon to be discharged per MD note. Pt continues on JENN with fair/poor intake of 10-50% at meals for the last 24 hours. Edema is still present in the lower extremities. On furosemide a K wasting diuretic, consider supplementation, and warfarin, monitor for consistent vit K intake. WBC have improved from 12.6 to 11.3 which is still elevated. RBC increased from 3.13 to 3.57 and Hgb increased from 9.9 to 11.3. Continue to monitor for improved intake, K, and vit k. STEPHANIE RENEE Sep 03, 2018 11:53
[2018-09-03] MEDS ORDERED: INFLUENZA VIRUS VAC 0.5ML SYR IM ONLY ONE (11:57)
[2018-09-03 12:05] VITALS: BP 150/57
[2018-09-03] MEDS: WARFARIN SOD 2.5 MG TAB PO SCH (13:23)
[2018-09-03 16:42] VITALS: BP 173/78
[2018-09-03 18:54] VITALS: BP 169/58
[2018-09-03] MEDS: METRONIDAZOLE PV SCH (20:22)
[2018-09-03] MEDS: ATORVASTATIN 40 MG TAB PO SCH (20:22)
[2018-09-03] MEDS: ACETAMINOPHEN 325 MG TAB PO PRN (20:22)
[2018-09-03 22:55] VITALS: BP 142/60
[2018-09-04 03:17] VITALS: BP 176/68
[2018-09-04] MEDS: FLUTICASONE/VILANTEROL 1 EACH INHALER INH SCH (05:38)
[2018-09-04 06:04] LABS: INR 2.44
[2018-09-04 07:00] VITALS: BP 184/71
[2018-09-04] MEDS: CALCIUM CARBONATE 600 MG TAB PO SCH (08:36)
[2018-09-04] MEDS: POTASSIUM CHL 20 MEQ TABCR PO SCH (08:36)
[2018-09-04] MEDS: PANTOPRAZOLE SOD 40 MG TABEC PO SCH (08:36)
[2018-09-04] MEDS: LISINOPRIL 20 MG TAB PO SCH (08:36)
[2018-09-04] MEDS: DILTIAZEM CD 120 MG CAPCR PO SCH (08:37)
[2018-09-04] MEDS: ACETAMINOPHEN 325 MG TAB PO PRN (08:37)
[2018-09-04] MEDS: CETIRIZINE HCL 10 MG TAB PO SCH (08:37)
[2018-09-04] MEDS: FLUTICASONE PROP 0.05% 16 GM ENA SCH (08:37)
[2018-09-04] MEDS: FUROSEMIDE 20 MG TAB PO SCH (08:37)
[2018-09-04] MEDS: ASPIRIN 81 MG CHEW PO SCH (08:37)
[2018-09-04] MEDS: ALLOPURINOL 300 MG TAB PO SCH (08:37)
[2018-09-04] MEDS: LEVOFLOXACIN 750 MG TAB PO SCH (09:19)
[2018-09-04] MEDS ORDERED: LEVO750T27 PO (09:57)
[2018-09-04] MEDS ORDERED: MET70GEL PV (09:57)
--- NOTE | 2018-09-04 10:03 | Hospitalist Depart ---
Discharge Summary Reason for Hosp/Final Diag: (1) UTI (urinary tract infection) Status: Acute Hospital Course & Plan: She presented with dysuria and her urine culture grew pansensitive E. coli. She was on IV ceftriaxone, but she had increasing liver function and WBC count. She was switched to Levaquin 09/01. She will continue Levaquin for 7 more days, for a total of 14 days treatment. (2) Pyelonephritis Status: Acute Hospital Course & Plan: She had increasing WBC count, nausea, and left flank pain. CT Abdomen and Pelvis confirmed pyelonephritis. She is on Levaquin. (3) Sepsis Status: Resolved Hospital Course & Plan: She did have an elevated WBC and fever. Her blood cultures from 08/27/18 are positive for E. coli. One of two blood cultures from this admission grew staph species contaminants. She has been afebrile for more than 48hours. She is on Levaquin. (4) BV (bacterial vaginosis) Status: Acute Hospital Course & Plan: She was found to have clue cells from a wet prep. She was started on oral Flagyl in the emergency department 08/27, but was switched to MetroGel intravaginal 08/31. She will continue for five days after oral treatment. (5) Hypothyroidism Status: Chronic Hospital Course & Plan: She is on chronic treatment with Levothyroxine. (6) Paroxysmal atrial fibrillation Status: Chronic Hospital Course & Plan: She is on chronic treatment with Warfarin. INR was elevated most likely due to antibiotics. We have her on reduced dose of warfarin now (2.5mg daily). Previously on 5mg 6 days a week and 2.5mg on Tuesday only. (7) Asthma Status: Chronic Hospital Course & Plan: She is on Breo and albuterol inhalers. (8) HTN (hypertension) Status: Chronic Hospital Course & Plan: She is on chronic treatment with Lisinopril and Lasix. These have been started with hold parameters. (9) Type 2 diabetes mellitus Status: Chronic Hospital Course & Plan: She is on chronic treatment with Metformin. Metformin held initially secondary to decreased appetite, she was covered with SS insulin during admission. She will resume her usual Metformin regimen. (10) CKD (chronic kidney disease) stage 3, GFR 30-59 ml/min Status: Chronic (11) Abnormal chest x-ray Hospital Course & Plan: Radiology did interpret her x-ray as an infiltrate, but she does not have any symptoms consistent with pneumonia. The [facility] would provide coverage. She should have follow up CXR in 4-6 weeks. Departure Latest Vital Signs Vital Signs 09/04/18 09/04/18 07:00 07:03 Temp 98.4 Pulse 54 Resp 20 B/P (MAP) 184/71 (108) Pulse Ox 95 O2 Delivery Nasal Cannula O2 Flow Rate 2.0 Weight (Pounds): 225 Weight (Ounces): 0.0 Result Diagram: 09/03/1860209/03/18602 Condition: Improved Discharge: Home, Self Care Discharge Instructions Home Meds Active Scripts Metronidazole (METRONIDAZOLE) 70 Gm Appful, 0 GM PV QHS for 1 Day, #1 ANGELO Prov:KT BLOOD [facility] 09/04/18 Levofloxacin 750 Mg Tab (LEVOFLOXACIN 750 MG TAB) 750 Mg Tablet, 750 MG PO QDAY@10 for 7 Days, #7 TAB Prov:KT BLOOD [facility] 09/04/18 Reported Medications Potassium Chloride (POTASSIUM CHLORIDE) 10 Meq Tablet.er, 10 MEQ PO QDAY 08/28/18 Diltiazem Hcl (CARTIA XT) 120 Mg Cap.er.24h, 120 MG PO QDAY 08/28/18 Metformin Hcl (METFORMIN HCL) 1,000 Mg Tablet, 1 TAB PO QDAY, TAB 08/28/18 Furosemide (FUROSEMIDE) 20 Mg Tablet, 1 TAB PO QDAY, TAB 08/28/18 Lisinopril (LISINOPRIL) 40 Mg Tablet, 40 MG PO QDAY, TAB 08/28/18 Levothyroxine Sodium (LEVOTHYROXINE SODIUM) 0.112 Mg Tab, 0.112 MG PO QDAY, TAB 08/28/18 Hydromorphone Hcl (DILAUDID) 2 Mg Tablet, 2 MG PO 07/26/18 Acetaminophen (ACETAMINOPHEN) 325 Mg Tablet, 650 MG PO BID, TAB 03/20/17 Warfarin Sodium (WARFARIN SODIUM) 2.5 Mg Tablet, 3.75 MG PO We 03/20/17 Warfarin Sodium (WARFARIN SODIUM) 2.5 Mg Tablet, 2.5 MG PO [id number] 03/20/17 Albuterol Sulfate 0.083% (ALBUTEROL SULFATE 0.083%) 2.5 Mg/3 Ml Vial.neb, 2.5 MG INH Q6H PRN for WHEEZING, INH 03/20/17 Cholecalciferol (Vitamin D3) (VITAMIN D) 1,000 Unit Tablet, 1000 UNIT PO DAILY 03/20/17 Atorvastatin Calcium (LIPITOR) 40 Mg Tablet, 1 TAB PO QHS, TAB 03/20/17 Fluticasone/Vilanterol (Breo Ellipta 200-25 Mcg INH) 1 Each Blst.w.dev, 1 INHALER INH QDAY 03/20/17 Calcium Carbonate (CALCIUM) 600 Mg Tablet, 600 MG PO BID 03/20/17 Aspirin (ASPIR 81) 81 Mg Tablet.dr, 81 MG PO QDAY, TAB 07/10/15 Cetirizine Hcl (ZYRTEC) 10 Mg Capsule, 10 MG PO QDAY, CAPSULE 06/25/15 Ascorbic Acid (VITAMIN C) 500 Mg Capsule.er, 500 MG PO DAILY 06/25/15 Triamcinolone Acetonide 0.1% Oint 15 Gm Tube (TRIAMCINOLONE ACETONIDE 0.1% 15 GM TUBE) 15 Gm Oint...g., 1 ANGELO TP DAILY PRN for RASH, TUBE 06/25/15 Albuterol Sulfate 90 Mcg/Act (PROAIR HFA 90 MCG/ACT) 8.5 Gm Hfa.aer.ad, 2 PUFF IH QID PRN for SHORTNESS OF BREATH 06/25/15 Epinephrine (EPIPEN 2-UZMA) 0.3 Mg/0.3 Ml Pen.injctr, 0.3 MG IM PRN PRN for allergic reaction to beesting 06/25/15 Hydrocodone Bit/Acetaminophen (NORCO 5-325 TABLET) 1 Each Tablet, 1 EACH PO Q6H PRN for chest pain 06/25/15 Fluticasone Prop 50 Mcg Ns (FLONASE 50 MCG NS) 16 Gm Dawson.susp, 1 SPRAYS NS BID, BOT 06/01/15 Allopurinol (ZYLOPRIM) 300 Mg Tablet, 300 MG PO QDAY, TAB 06/01/15 Omeprazole (Omeprazole) 40 Mg Capsule.dr, 40 MG PO DAILY, 0 Refills 06/04/11 Multivitamins (Multivitamin) 1 Tab Tablet, 1 TAB PO DAILY, 0 Refills 06/04/11 Zolpidem Tartrate (Ambien) 5 Mg Tab, 5 MG PO QHSprn, 0 Refills 06/04/11 Discontinued Reported Medications Lisinopril (LISINOPRIL) 10 Mg Tablet, 5 MG PO QDAY, TAB 03/20/17 Alendronate Sodium (FOSAMAX) 70 Mg Tablet, 70 MG PO QWK, TAB 03/20/17 Gabapentin (GABAPENTIN) 300 Mg Capsule, 300 MG PO BID, CAPSULE 03/20/17 Vitamin E Mixed (VITAMIN E) 100 Unit Tablet, 100 UNIT PO DAILY 06/25/15 Levothyroxine Sodium (LEVOXYL) 100 Mcg Tablet, 100 MCG PO QDAY, TAB 06/25/15 [place]-3 Fatty Acids/Fish Oil (FISH OIL 1,000 MG CAPSULE) 1 Each Capsule, 1 EACH PO DAILY, CAPSULE 06/01/15 Glucosa [place] 2KCL/Chondroitin [place] (GLUCOSAMINE & CHONDROITIN CAP) 1 Each Capsule, 1 TAB PO BID, CAPSULE 06/01/15 Bumetanide (Bumex) 2 Mg Tab, 2 MG PO QDAY, 0 Refills 06/04/11 Discontinued Scripts Levofloxacin 500 Mg Tab (LEVAQUIN 500 MG TAB) 500 Mg Tablet, 500 MG PO DAILY, #7 TAB Prov:LAURORA,RAHEL V DO 08/27/18 Metronidazole (FLAGYL) 500 Mg Tablet, 500 MG PO BID, #7 TAB Prov:LAURORA,RAHEL V DO 08/27/18 Diet: Diabetic Activity: As Tolerated, With Walker Special Instructions: Please follow up with [facility] Gómez in the next week. Please check INR . Copies to: CHETNA GÓMEZ ; Venous Thromboembolism Antithrombotics Is Pt On Any Antithrombotics?: Yes Problem Qualifiers (1) UTI (urinary tract infection): Urinary tract infection type: acute cystitis Hematuria presence: without hematuria Qualified Codes: N30.00 - Acute cystitis without hematuria (2) Sepsis: Sepsis type: Escherichia coli Qualified Codes: A41.51 - Sepsis due to Escherichia coli [e. coli] (3) HTN (hypertension): Hypertension type: essential hypertension Qualified Codes: I10 - Essential (primary) hypertension KT BLOOD CERTIFIED PHARMACY TECH Sep 04, 2018 10:03
== END 2018-09-04 10:55 | disposition home or self-care (01) | DRG 872 ==
LOC: ER 11:21 → MED 13:13
PROVIDERS: ADMIT Internal Medicine; ATTEND Internal Medicine
DX: A41.51 Sepsis due to Escherichia coli [E. coli] (principal); N30.00 Acute cystitis without hematuria; N10 Acute pyelonephritis; I12.9 Hypertensive chronic kidney disease with stage 1 through stage 4 chronic kidney disease, or unspecified chronic kidney disease; Z79.01 Long term (current) use of anticoagulants; E03.9 Hypothyroidism, unspecified; J45.909 Unspecified asthma, uncomplicated; I48.0 Paroxysmal atrial fibrillation; Z87.891 Personal history of nicotine dependence; N76.0 Acute vaginitis; E11.22 Type 2 diabetes mellitus with diabetic chronic kidney disease; Z79.84 Long term (current) use of oral hypoglycemic drugs; N18.3 Chronic kidney disease, stage 3 (moderate); R91.8 Other nonspecific abnormal finding of lung field; Z88.0 Allergy status to penicillin; Z88.1 Allergy status to other antibiotic agents; Z88.5 Allergy status to narcotic agent; Z91.048 Other nonmedicinal substance allergy status; Z88.8 Allergy status to other drugs, medicaments and biological substances; Z91.040 Latex allergy status; Z96.651 Presence of right artificial knee joint; Z23 Encounter for immunization
CPT/HCPCS: 36415; 36416; 71045; 71046; 74177; 76705; 81001; 82040; 82247; 82310; 82374; 82435; 82565; 82947; 82948; 83605; 83690; 84075; 84132; 84155; 84295; 84450; 84460; 84520; 85025; 85610; 86140; 87040; 87077; 87088; 87186; 87210; 87502; 90471; 90674; 93005; 94640; 96360; 96361; 96374; 99283; 99284; A4353; C1758; J0692; J0696; J1956; J3480; J3535; J7030; Q9967

== ENCOUNTER → 2018-10-10 | Outpatient (CLI) | payer MEDICARE, OTHER ==
[2018-08-29 08:26] VITALS: BMI 34.2
[~2018-10-10] MED LIST changes: +DILT-102 PO; +FURO-45 PO; +LEV112 PO; +LEVO750T27 PO; +LISI-374 PO; +MET70GEL PV; +METF-452 PO; +POTA-28 PO
--- NOTE | 2018-10-10 12:08 | RADIOLOGY IMAGING REPORT ---
FACILITY: [facility] PATIENT NAME: Karen Black : 1950 MR: [id number] V: [id number] EXAM DATE: ORDERING PHYSICIAN: JUJU BETHEA TECHNOLOGIST: Location: [facility] - [place] Patient: Karen Black : 1950 Visit/Account:[id number] Date of Sevice: 10/10/2018 Chest 2 views: HISTORY: Preop. Previous smoker. History of CHF, asthma COPD O2 use. COMPARISON: 08/28/2018 FINDINGS: Frontal and lateral chest: Cardiomediastinal silhouette is within normal limits. There is no infiltrate or pleural effusion. No pneumothorax. Pulmonary vasculature is normal. Minimal scarr ing present in the left lung base. Minor degenerative changes present in the thoracic spine. There is no focal compression deformity. Degenerative changes present in the shoulders left greater than right. Postsurgical changes present on the left. IMPRESSION: No evidence of acute cardiopulmonary abnormality. Report Dictated By: Jennifer Infante MD at 10/10/2018 12:01 PM Report E-Signed By: Jennifer Infante MD at 10/10/2018 12:03 PM WSN:[email or web address]
== END ==
LOC: RAD 10:51
PROVIDERS: ATTEND Orthopaedic Surgery Hand Surgery
DX: Z01.812 Encounter for preprocedural laboratory examination (principal); Z01.818 Encounter for other preprocedural examination; M19.011 Primary osteoarthritis, right shoulder
CPT/HCPCS: 71046

== ENCOUNTER 2018-11-03 02:14 | Inpatient (IN) | payer MEDICARE, OTHER ==
[2018-11-02 15:39] LABS: INR 1.17
[~2018-11-03] VITALS: Ht 154.9 cm; Wt 98.0 kg
[2018-11-03] VITALS (13 sets, daily range): BP systolic 128–164; BP diastolic 51–81
[~2018-11-03 02:14] MED LIST changes: +BENZ100C4 PO; +CEPH500T7 PO; +DICL100G39 TOP; +GABA-490 PO; +IMIQ7.5C3 TOP; +LACT1CAP6 PO; +MECO10002 PO; +OXYGENHOME INH; +TRAM-420 PO; +TRIA10.8
[2018-11-03] MEDS: NORMOSOL R SOLN(*) 1000 ML BAG 1,000 ML IV PRN ×2 (10:55→17:15)
[2018-11-03] MEDS ORDERED: ACETAMINOPHEN 500 MG TAB PO ONE (12:30)
[2018-11-03] MEDS ORDERED: CELECOXIB 200 MG CAP PO ONE (12:30)
[2018-11-03] MEDS ORDERED: LIDOCAINE/SOD BICARB 8.4% SYR ID ONE (12:30)
[2018-11-03] MEDS ORDERED: ROPIVACAINE/EPI/CLONIDINE/KET 50 ML SYRINGE INJ ONE (12:30)
[2018-11-03] MEDS ORDERED: MIDAZOLAM 2 MG/2 ML VIAL IVP PRN (12:30)
[2018-11-03] MEDS ORDERED: ceFAZolin(*) 2GM/D5W 50ML 50 ML IVPB ONE (13:15)
[2018-11-03] MEDS ORDERED: MIDAZOLAM 2 MG/2 ML VIAL ONE (13:48)
[2018-11-03] MEDS ORDERED: TRANEXAMIC AC 1000 MG/10ML SDV 1,000 MG in DEXTROSE 5% 50 ML BAG 50 ML IVPB ONE (14:30)
[2018-11-03] MEDS ORDERED: fentaNYL CITR 100 MCG/2 ML AMP ONE (15:36)
[2018-11-03] MEDS ORDERED: SUGAMMADEX SOD 200 MG/2 ML SDV ONE (15:57)
[2018-11-03] MEDS ORDERED: SUGAMMADEX SOD 500 MG/5 ML SDV ONE (16:05)
[2018-11-03] MEDS ORDERED: ALBUTEROL 8 GM INHALER INH PRN (17:15)
[2018-11-03] MEDS ORDERED: ALBUTEROL 2.5 MG/3 ML NEB INH PRN (17:15)
[2018-11-03] MEDS ORDERED: KCL/D5LR 20 MEQ/1000 ML PREMIX 1,000 ML IV PRN (17:20)
[2018-11-03] MEDS ORDERED: MAGNESIUM CITRATE 300 ML BTL PO PRN (17:20)
[2018-11-03] MEDS ORDERED: diphenhydrAMINE 25 MG CAP PO PRN (17:20)
[2018-11-03] MEDS ORDERED: PROMETHAZINE 25 MG/ML 1 ML AMP IVP PRN (17:20)
[2018-11-03] MEDS ORDERED: ACETAMINOPHEN 500 MG TAB PO PRN (17:20)
[2018-11-03] MEDS ORDERED: FLUSH 10 ML SYR IVP PRN (17:20)
[2018-11-03] MEDS ORDERED: ONDANSETRON 4 MG/2 ML VIAL IVP PRN (17:20)
[2018-11-03] MEDS ORDERED: INSULIN HUM LISPRO 100 UN/ML 3 ML VIAL SUBQ PRN (17:35)
--- NOTE | 2018-11-03 17:38 | Hospitalist Consultation ---
History of Present Illness Requesting Physician Dr. Stover Reason for Consult Medical Management Chief Complaint s/p right reverse total shoulder replacement History of Present Illness She was admitted s/p right reverse total shoulder replacement. It is reported the surgery went well and without complication. History Problems: (1) HTN (hypertension) Status: Chronic (2) CKD (chronic kidney disease) stage 3, GFR 30-59 ml/min Status: Chronic (3) Type 2 diabetes mellitus Status: Chronic (4) Paroxysmal atrial fibrillation Status: Chronic (5) Hypothyroidism Status: Chronic (6) Asthma Status: Chronic Home Meds Reported Medications Imiquimod (Imiquimod) 3.75 % Sánchez..email operations manager, 5 TOP 10/27/18 Oxygen (OXYGEN) Inha, 2 L INH, L 10/27/18 Mecobalamin (B-12) 1,000 Mcg Tab.rapdis, 1 TAB PO QDAY 10/27/18 Lactobacillus Combination No.4 (PROBIOTIC) 1 Each Capsule, 1 EACH PO, CAPSULE 10/27/18 Triamcinolone Acetonide (Nasacort) 10.8 Ml Mcintosh, 1 SPRAY NA PRN 10/27/18 Diclofenac Sodium 1% Gel (VOLTAREN 1% GEL) 100 Gm Gel..gram., 2-4 G TOP QID PRN for PAIN 10/27/18 Tramadol Hcl (TRAMADOL HCL) 50 Mg Tablet, 50 MG PO Q8H PRN for PAIN, TAB 10/27/18 Benzonatate 100 Mg Cap (TESSALON PERLE 100 MG CAP) 100 Mg Capsule, 200 MG PO Q8H PRN for COUGH, #15 CAP 10/27/18 Gabapentin (NEURONTIN) 300 Mg Capsule, 300 MG PO TID, CAPSULE 10/27/18 Cephalexin 500 Mg Tab (KEFLEX 500 MG TAB) 500 Mg Tablet, 4 TAB PO ONCE, TAB PT TAKES 4 TABS 1 HOUR PRIOR TO DENTAL PROCEDURES 10/27/18 Potassium Chloride (POTASSIUM CHLORIDE) 10 Meq Tablet.er, 10 MEQ PO QDAY 08/28/18 Diltiazem Hcl (CARTIA XT) 120 Mg Cap.er.24h, 120 MG PO QDAY 08/28/18 Metformin Hcl (METFORMIN HCL) 1,000 Mg Tablet, 1 TAB PO QDAY, TAB 08/28/18 Furosemide (FUROSEMIDE) 20 Mg Tablet, 1 TAB PO QDAY, TAB 08/28/18 Lisinopril (LISINOPRIL) 40 Mg Tablet, 40 MG PO QDAY, TAB 08/28/18 Levothyroxine Sodium (LEVOTHYROXINE SODIUM) 0.112 Mg Tab, 0.112 MG PO QDAY, TAB 08/28/18 Hydromorphone Hcl (DILAUDID) 2 Mg Tablet, 2 MG PO 1-2 TABS PRN PAIN 07/26/18 Acetaminophen (ACETAMINOPHEN) 325 Mg Tablet, 650 MG PO BID, TAB 03/20/17 Warfarin Sodium (WARFARIN SODIUM) 2.5 Mg Tablet, 2.5 MG PO DETERMINED BY INR PT TAKES 1.75 MG ON TUESDAY AND 2.5 MG TUESDAY-Tuesday03/20/17 Albuterol Sulfate 0.083% (ALBUTEROL SULFATE 0.083%) 2.5 Mg/3 Ml Vial.neb, 2.5 MG INH BID PRN for WHEEZING, INH 03/20/17 Cholecalciferol (Vitamin D3) (VITAMIN D) 1,000 Unit Tablet, 5000 MG PO QDAY 03/20/17 Atorvastatin Calcium (LIPITOR) 40 Mg Tablet, 1 TAB PO QHS, TAB 03/20/17 Fluticasone/Vilanterol (Breo Ellipta 200-25 Mcg INH) 1 Each Blst.w.dev, 1 INHALER INH QDAY 03/20/17 Aspirin (ASPIR 81) 81 Mg Tablet.dr, 81 MG PO QDAY, TAB 07/10/15 Cetirizine Hcl (ZYRTEC) 10 Mg Capsule, 10 MG PO QDAY, CAPSULE 06/25/15 Ascorbic Acid (VITAMIN C) 500 Mg Capsule.er, 1000 MG PO DAILY PT TAKES A 1200 06/25/15 Triamcinolone Acetonide 0.1% Oint 15 Gm Tube (TRIAMCINOLONE ACETONIDE 0.1% 15 GM TUBE) 15 Gm Oint...g., 1 ANGELO TP DAILY PRN for RASH, TUBE 06/25/15 Albuterol Sulfate 90 Mcg/Act (PROAIR HFA 90 MCG/ACT) 8.5 Gm Hfa.aer.ad, 2 PUFF IH QID PRN for SHORTNESS OF BREATH PT USES QAM AND QPM 06/25/15 Epinephrine (EPIPEN 2-UZMA) 0.3 Mg/0.3 Ml Pen.injctr, 0.3 MG IM PRN PRN for allergic reaction to beesting 06/25/15 Fluticasone Prop 50 Mcg Ns (FLONASE 50 MCG NS) 16 Gm Mcintosh.susp, 1 SPRAYS NS BID, BOT 1-2 NS SPRAYS PRN AND PT USES QAM AND QHS 06/01/15 Allopurinol (ZYLOPRIM) 300 Mg Tablet, 300 MG PO QDAY, TAB 06/01/15 Omeprazole (Omeprazole) 40 Mg Capsule.dr, 40 MG PO DAILY, 0 Refills 06/04/11 Multivitamins (Multivitamin) 1 Tab Tablet, 1 TAB PO DAILY, 0 Refills 06/04/11 Zolpidem Tartrate (Ambien) 5 Mg Tab, 5 MG PO QHSprn, 0 Refills 06/04/11 Discontinued Reported Medications Warfarin Sodium (WARFARIN SODIUM) 2.5 Mg Tablet, 3.75 MG PO We 03/20/17 Calcium Carbonate (CALCIUM) 600 Mg Tablet, 600 MG PO BID 03/20/17 Hydrocodone Bit/Acetaminophen (NORCO 5-325 TABLET) 1 Each Tablet, 1 EACH PO Q6H PRN for chest pain 06/25/15 Discontinued Scripts Metronidazole (METRONIDAZOLE) 70 Gm Appful, 0 GM PV QHS for 1 Day, #1 ANGELO Prov:KT BLOOD [facility] 09/04/18 Levofloxacin 750 Mg Tab (LEVOFLOXACIN 750 MG TAB) 750 Mg Tablet, 750 MG PO QDAY@10 for 7 Days, #7 TAB Prov:KT BLOOD [facility] 09/04/18 Allergies: Coded Allergies: Penicillins (Verified Allergy, Intermediate, RASH, 08/28/18) aloe (Verified Allergy, Intermediate, RASH, 10/27/18) erythromycin base (Verified Allergy, Intermediate, RASH, 08/28/18) morphine (Verified Allergy, Intermediate, N&v, 08/28/18) nickel (Verified Allergy, Intermediate, rash, hives, 08/28/18) codeine (Verified Allergy, Mild, N&V, 08/28/18) salmeterol (Verified Allergy, Mild, 08/28/18) BEE STINGS (Verified Allergy, Unknown, 10/27/18) adhesive tape (Verified Allergy, Unknown, RASH, 10/27/18) bacitracin (Verified Allergy, Unknown, 08/28/18) cat dander (Verified Allergy, Unknown, 10/27/18) grass pollen (Verified Allergy, Unknown, 10/27/18) latex (Verified Allergy, Unknown, 08/28/18) neomycin (Verified Allergy, Unknown, 08/28/18) polymyxin B (Verified Allergy, Unknown, 08/28/18) pramoxine (Verified Allergy, Unknown, 08/28/18) Patient History: FH: CHF (congestive heart failure) FATHER MOTHER FH: type 2 diabetes mellitus BROTHER OR SISTER BROTHER OR SISTER BROTHER OR SISTER BROTHER OR SISTER Hx Smoking: Yes (QUIT 1985, 10/04 PPD X 20 YEARS ) Smoking Status: Former Smoker Exposure to Second Hand Smoke?: No Caffeine Intake: Coffee, Tea Caffeine/Cups Per Day: 2-3 CPD Hx Alcohol Use: Yes Hx Substance Use Disorder: No Social Drug Use: Never History of IV Drug Use: No Review of Systems All Systems Reviewed/Normal: Yes, Except as Noted Exam Vital Signs Vital Signs Date Time Temp Pulse Resp B/P (MAP) Pulse Ox O2 Delivery O2 Flow Rate FiO2 11/03/18 11:20 97.3 85 20 145/64 (91) 92 Nasal Cannula 2.0 General Appearance: Alert, Awake, No Acute Distress, Afebrile Neuro: No Gross deficits Cardiovascular: Regular Rate and Rhythm Respiratory: No Respiratory Distress, Clear to Auscultation Psych: Alert & Oriented X3, Appropriate Mood & Affect Assessment and Plan Problems: (1) Status post reverse total replacement of right shoulder Status: Acute Assessment & Plan: Followed by Dr. Stover. (2) Paroxysmal atrial fibrillation Status: Chronic Assessment & Plan: She is on chronic treatment with Warfarin and Diltiazem. She stopped Warfarin 5 days prior to surgery, she didn't bridge with Lovenox prior to surgery. However, her PCP Clara Tai FLOORING INSTALLER recommends post-operative Lovenox bridging twice daily to start on post-operative day #2. She did not receive rx for Lovenox, she will need prescription prior to discharge. She will start Warfarin tonight. (3) Asthma Status: Chronic Assessment & Plan: She is on chronic treatment with Breo and Albuterol inhaler. (4) HTN (hypertension) Status: Chronic Assessment & Plan: She is on chronic treatment with Lisinopril and Furosemide. These have been restarted with hold parameters. (5) Type 2 diabetes mellitus Status: Chronic Assessment & Plan: She is on chronic treatment with Metformin. This will be held. She will be covered with SS insulin #2, AC/HS blood sugars. (6) CKD (chronic kidney disease) stage 3, GFR 30-59 ml/min Status: Chronic Assessment & Plan: Her creatinine was 0.9 09/19. Will recheck BMP tomorrow. (7) Hypothyroidism Status: Chronic Assessment & Plan: She is on chronic treatment with Levothyroxine. Venous Thromboembolism Antithrombotics Is Pt On Any Antithrombotics?: Yes KT BLOODP Nov 03, 2018 17:38
--- NOTE | 2018-11-03 18:16 | RADIOLOGY IMAGING REPORT ---
FACILITY: [facility] PATIENT NAME: Karen Black : 1950 MR: [id number] V: [id number] EXAM DATE: ORDERING PHYSICIAN: JUJU BETHEA TECHNOLOGIST: Location: [facility] [place] Patient: Karen Black : 1950 Visit/Account:[id number] Date of Sevice: 11/03/2018 INDICATION: S/P TOTAL REVERSE SHOULDER ARTHROPLASTY, CHECK PLACEMENT. DATE: 11/03/2018 6:11 PM. TECHNIQUE: SHOULDER 1 VIEW RIGHT COMPARISON: Radiographs July 26, 2018 FINDINGS: A right reverse total shoulder prosthesis is noted. No apparent complication. IMPRESSION: Right reverse total shoulder prosthesis without apparent complication. Report Dictated By: Hector Noble MD at 11/03/2018 6:11 PM Report E-Signed By: Hector Noble MD at 11/03/2018 6:13 PM WSN:[email or web address]
--- NOTE | 2018-11-03 18:32 | OPERATIVE REPORT 1 ---
EVENT DATE: November 03, 2018 SURGEON: Florentino Stover MD ANESTHESIOLOGIST: Umberto Jacobs MD ANESTHESIA: General plus scalene block. 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 POSTOPERATIVE DIAGNOSIS Right cuff tear arthropathy with history of multiple revisions of total joint arthroplasties due to apparent metal allergy. PROCEDURE PERFORMED Reverse total shoulder arthroplasty using a titanium head with a titanium stem and tray and polyethylene insert. She was also allergic to adhesives, so we did not use the standard subcuticular closure with Ster[place]. [place] [address]. ESTIMATED BLOOD LOSS 100 mL. INTRAVENOUS FLUIDS 1900 mL. TOURNIQUET TIME None. SPECIMENS None. COMPLICATIONS None. IMPLANTS USED Tornier titanium head, size 36 glenosphere, 25 base, with a +6 polyethylene liner and a 1.5 offset tray. DESCRIPTION OF PROCEDURE The patient was brought in to the operating room and placed on the OR table in the supine position. She was given a general anesthetic after having been administered the scalene block. She was placed in the beach-chair position, and her right shoulder was prepped and draped in the usual sterile fashion. We did the deltopectoral approach, deepened through skin and the extensive subcutaneous tissues. We then identified the cephalic vein and retracted it with the deltoid. The conjoined tendon was identified and retracted, and beneath this was basically the capsule. It really did not look like she had much of a subscapularis at all. We opened the capsule. The fluid was clear. There was no attachment of the rotator cuff on the head at all. We brought the head forward, having released the biceps tendon, and then made our first cut. The first cut did not look like it had the right retroversion. It was a bit more like her anatomic version, but we wanted a bit less to make it a standard for the reverse implant, so we put it more around 20 degrees. Having done this, we did the standard reaming and then compression with the broaches to push the bone outward, getting up to a size 3, which seemed to fit very well. We then covered this with a metal cap and retracted it out of the way to start working on the glenoid. Circumferential stripping of the glenoid was undertaken, followed by retraction and then progressive glenoid preparation. This included complete release and removal of the labrum and the biceps fragment that had been released previously. We then placed a [id number] drill guide for the base plate, milled this and then did the circumduction reamer to clear the surrounding tissue for the glenosphere. The base plate was secured with screws using both locking and nonlocking, but the posterior screw did not get adequate purchase, so I just chose to leave it out. Only a total of three screws plus the base element was used for ingrowth. Having done this, the glenosphere was attached and screws into position. We then directed our attention back to the humerus. The protective plate was removed, and we trialed. It looked like an offset 1.5 neutral would be best, so we marked this position, opened the implant, and prepared the final implant by attaching it to its tray and then securing it into the patient's humerus, all press-fit. We had already trialed the previous reduction with a +6, and that fit very well and was actually quite hard to dislocate afterwards, so I did not trial again. We simply placed a +6 and reduced it, but before doing so, I did remove a little bit of the greater tuberosity projecting out from under the tray, because it appeared during trial reduction that that was impacting the acromion in maximum abduction. We reduced her and trialed her again. She had good stability, and the glenosphere tracked the tray very well without any gap formation. It was irrigated. We injected the local tissues with a local anesthetic and then closed using a running Vicryl suture closure for the deep fascia and deltoid. We did not really have any soft tissue to repair for the subscapularis or the rotator cuff, but in this type of an offset implant, repairing the subscapularis is probably not advisable anyway. Subcutaneous tissue was very thick, and it was closed with double-layer Vicryl followed by additional subcutaneous closure with 3-0 Vicryl, and then sunny were used for skin closure. She is allergic to metal, but she is also allergic to adhesives, so that limited our options, but at least the sunny will only be in for 10-14 days. She was given a dry sterile dressing and transferred to the recovery area in stable condition, using micropore tape for the dressing. MTDD
[2018-11-03] MEDS ORDERED: traMADol 50 MG TAB PO PRN (20:20)
[2018-11-03] MEDS ORDERED: HYDROmorphone HCL 2 MG TAB PO PRN (20:20)
[2018-11-03] MEDS ORDERED: ATORVASTATIN 40 MG TAB PO SCH (21:00)
[2018-11-03] MEDS ORDERED: WARFARIN SOD 2.5 MG TAB PO SCH (21:00)
[2018-11-03] MEDS: GABAPENTIN 300 MG CAP PO SCH (21:28)
[2018-11-03] MEDS: ceFAZolin(*) 1 GM VIAL 1 GM in NS(*) 0.9% 100 ML ADDVANT BAG 100 ML IVPB SCH (21:29)
[2018-11-04] MEDS: ceFAZolin(*) 1 GM VIAL 1 GM in NS(*) 0.9% 100 ML ADDVANT BAG 100 ML IVPB SCH ×2 (05:31→11:27)
[2018-11-04 05:53] LABS: PLATELET COUNT, AUTOMATED 177 K/uL (150-450)
[2018-11-04] MEDS ORDERED: LEVOTHYROXINE SOD 0.112 MG TAB PO SCH (06:00)
[2018-11-04 06:53] VITALS: BP 155/63
[2018-11-04] MEDS ORDERED: OXYC5TAB38 PO (07:09)
[2018-11-04 08:16] LABS: INR 1.12
[2018-11-04] MEDS: GABAPENTIN 300 MG CAP PO SCH (08:49)
--- NOTE | 2018-11-04 08:49 | NUR ---
Occupational Therapy Impression Pt. completed all Reverse TSA protocol exercises and education regarding UB dressing, sling use and shoulder precautions. Pt. is ready to d/c to home with OP PT. Pt. has appt. set up at [facility]. Occupational Therapy Goals Patient's Goal
[2018-11-04] MEDS ORDERED: ENOXAPARIN 40 MG/0.4ML SYR SC ONE (08:50)
[2018-11-04] MEDS ORDERED: WARFARIN SOD 5 MG TAB PO ONE (08:50)
[2018-11-04] MEDS ORDERED: ENOX40DI8 SQ (08:56)
[2018-11-04] MEDS ORDERED: PANTOPRAZOLE SOD 40 MG TABEC PO SCH (09:00)
[2018-11-04] MEDS ORDERED: [UNRECOGNIZED DRUG - OTHER] INH SCH (09:00)
[2018-11-04] MEDS ORDERED: FLUTICASONE/VILANTEROL 1 EACH INHALER INH SCH (09:00)
[2018-11-04] MEDS ORDERED: FUROSEMIDE 20 MG TAB PO SCH (09:00)
[2018-11-04] MEDS ORDERED: LISINOPRIL 20 MG TAB PO SCH (09:00)
[2018-11-04] MEDS ORDERED: ASPIRIN 81 MG ENTERIC COATED PO SCH (09:00)
[2018-11-04] MEDS ORDERED: DILTIAZEM CD 120 MG CAPCR PO SCH (09:00)
[2018-11-04] MEDS ORDERED: CETIRIZINE HCL 10 MG TAB PO SCH (09:00)
[2018-11-04] MEDS ORDERED: ALLOPURINOL 300 MG TAB PO SCH (09:00)
[2018-11-04] MEDS ORDERED: FLUTICASONE PROP 0.05% 16 GM ENA SCH (09:00)
[2018-11-04 09:11] VITALS: Ht 154.9 cm; Wt 98.0 kg
[2018-11-04 11:06] VITALS: BP 153/60
== END 2018-11-04 12:52 | disposition home or self-care (01) | DRG 483 ==
LOC: OR 02:14 → MED 18:09
PROVIDERS: ADMIT Orthopaedic Surgery Hand Surgery; ATTEND Orthopaedic Surgery Hand Surgery
PROC: 0RRJ00Z Replacement of Right Shoulder Joint with Reverse Ball and Socket Synthetic Substitute, Open Approach (ICD-10-PCS; principal; 2018-11-03 13:44)
DX: M19.011 Primary osteoarthritis, right shoulder (principal); Z68.41 Body mass index [BMI] 40.0-44.9, adult; E11.22 Type 2 diabetes mellitus with diabetic chronic kidney disease; I12.9 Hypertensive chronic kidney disease with stage 1 through stage 4 chronic kidney disease, or unspecified chronic kidney disease; N18.3 Chronic kidney disease, stage 3 (moderate); I48.0 Paroxysmal atrial fibrillation; E03.9 Hypothyroidism, unspecified; J44.9 Chronic obstructive pulmonary disease, unspecified; K21.9 Gastro-esophageal reflux disease without esophagitis; E66.9 Obesity, unspecified; Z79.84 Long term (current) use of oral hypoglycemic drugs; Z88.0 Allergy status to penicillin; Z88.5 Allergy status to narcotic agent; Z88.1 Allergy status to other antibiotic agents; Z88.8 Allergy status to other drugs, medicaments and biological substances; Z88.6 Allergy status to analgesic agent; Z91.040 Latex allergy status; Z87.891 Personal history of nicotine dependence; Z96.642 Presence of left artificial hip joint; Z79.01 Long term (current) use of anticoagulants
CPT/HCPCS: 36415; 36416; 82310; 82374; 82435; 82565; 82947; 82948; 84132; 84295; 84520; 85014; 85018; 85025; 85610; 86850; 86900; 86901; 94640; 97165; J0690; J1650; J2250; J3010; J7050; J7060; J7613